=== PATIENT | female | born 1955 | race Caucasian/White ===

== ENCOUNTER 2016-07-13 18:45 | Emergency (ER) | payer MEDICARE, OTHER ==
[2016-07-13 18:57] VITALS: RESP 18
--- NOTE | 2016-07-13 19:02 | ED ---
General Adult HPI - General Chief complaint: Extremity Injury, Upper Stated complaint: shoulder blade injury x 2 weeks Time Seen by Provider: 07/13/16 18:53 Source: patient, RN notes reviewed Mode of arrival: ambulatory Limitations: no limitations - History of Present Illness Initial comments: This is a 60-year-old female who presents with left shoulder pain 2-3 weeks. Patient states she was cleaning her shower and stumbled backwards into her shower hurting her left shoulder. Patient states the pain is over the left scapula. Patient admits that it hurts to take a deep breath. Patient did not hit her head or lose consciousness. Patient denies any neck or back pain. Patient states she was treated for this pain with injections but has never had an x-ray. Patient admits to having a dry cough for 2 weeks. Patient admits to being a smoker. Patient denies any numbness/weakness/tingling or radicular pain. Patient denies any recent fever, chills, shortness breath, chest pain, abdominal pain, nausea/vomiting/diarrhea, back pain, numbness, tingling, hematuria, headache, or visual changes, or any other complaints. - Related Data Home Medications Medication Instructions Recorded Confirmed No Known Home Medications [No 07/13/16 07/13/16 Known Home Medications] Allergies Allergy/AdvReac Type Severity Reaction Status Date / Time acetaminophen Allergy Unknown Verified 07/13/16 19:02 [From Darvocet-N] adhesive tape Allergy Unknown Verified 07/13/16 19:02 propoxyphene Allergy Unknown Verified 07/13/16 19:02 [From Darvocet-N] Review of Systems ROS Statement: Those systems with pertinent positive or pertinent negative responses have been documented in the HPI. ROS Other: All systems not noted in ROS Statement are negative. Past Medical History Additional Past Medical History / Comment(s): hypoglycemia, RSD History of Any Multi-Drug Resistant Organisms: None Reported Past Surgical History: No Surgical Hx Reported Additional Past Surgical History / Comment(s): hysterctomy, Varicose Vein Past Psychological History: No Psychological Hx Reported Smoking Status: Former smoker Past Alcohol Use History: None Reported Past Drug Use History: None Reported General Exam - General Exam Comments Initial Comments: General: The patient is awake and alert, in no distress, and does not appear acutely ill. Neck: There is no cervical midline tenderness. The neck is supple, there is no tenderness or JVD. Cardiovascular: There is a regular rate and rhythm. No murmur, rub or gallop is appreciated. Respiratory: Lungs are clear to auscultation, respirations are non-labored, breath sounds are equal. No wheezes, stridor, rales, or rhonchi. Musculoskeletal: Patient is tender to the left posterior ribs near the thoracic level of the spine. Patient has mild tenderness to the left posterior shoulder and to the anterior aspect of the left shoulder. There is no cervical, thoracic or lumbar midline tenderness. Patient had limited range of motion with flexion of the left upper extremity due to pain in the posterior left shoulder, strength 5/5 and Sensation intact. Radial pulses 2+ bilaterally. Capillary refill is normal at less than 2 seconds. Neurological: A&O x 3. CN II-XII intact, There are no obvious motor or sensory deficits. Coordination appears grossly intact. Speech is normal. Skin: Skin is warm and dry and no rashes or lesions are noted. Psychiatric: Normal mood and affect. Limitations: no limitations Course Vital Signs 07/13/16 18:54 Temperature 97.8 F Pulse Rate 92 Respiratory 18 Rate Blood Pressure 134/64 O2 Sat by Pulse 97 Oximetry Medical Decision Making - Medical Decision Making This is a 60-year-old female who presents with left posterior shoulder pain.. On physical exam Patient is tender to the left posterior ribs near the thoracic level of the spine. Patient has mild tenderness to the left posterior shoulder and to the anterior aspect of the left shoulder. There is no cervical, thoracic or lumbar midline tenderness. Patient had limited range of motion with flexion of the left upper extremity due to pain in the posterior left shoulder, strength 5/5 and Sensation intact. Radial pulses 2+ bilaterally. Capillary refill is normal at less than 2 seconds. Patient is afebrile in the EC today. Patient is in no acute respiratory distress. Lungs are clear to auscultation bilaterally. X-rays of the left ribs, left shoulder and a chest x-ray was done and reviewed showing: Chest x-ray: Bilateral multifocal pulmonary opacities. Would suggest further characterization with CT chest with contrast. X-ray shoulder left: Negative examination. X-ray ribs left: Suspicious pulmonary findings. Reports read by Dr. Brock. At this time basic labs were drawn and reviewed. A CT chest w con was done and reviewed showing: Multifocal pulmonary, skeletal and liver metastatic lesions with hilar and mediastinal adenopathy-suspect left renal cell carcinoma. Report read by Dr. Brock. I discussed the results with patient. I discussed the importance of following up for primary care physician on Saturday for further testing. Patient's questions were all answered and patient was receptive to this plan. I discussed warm heating pads to the left shoulder. Discussed that no fractures were found on imaging. Discussed continuation of patient's normal at home pain medication. Patient's pain is managed with her pain management doctor. I discussed close follow-up with him as well. Discussed return parameters. Patient will be discharged home. I discussed this case with attending physician Dr. Rey who agrees with plan as stated above. - Lab Data Result diagrams: 07/13/16 19:55 07/13/16 19:55 Lab Results 07/13/16 07/13/16 Range/Units 19:55 19:55 WBC 13.5 H (3.8-10.6) k/uL RBC 4.37 (3.80-5.40) m/uL Hgb 12.2 (11.4-16.0) gm/dL Hct 37.6 (34.0-46.0) % MCV 85.9 (80.0-100.0) fL MCH 27.8 (25.0-35.0) pg MCHC 32.4 (31.0-37.0) g/dL RDW 14.4 (11.5-15.5) % Plt Count 671 H (150-450) k/uL Neutrophils % 78 % Lymphocytes % 13 % Monocytes % 6 % Eosinophils % 1 % Basophils % 0 % Neutrophils # 10.5 H (1.3-7.7) k/uL Lymphocytes # 1.7 (1.0-4.8) k/uL Monocytes # 0.8 (0-1.0) k/uL Eosinophils # 0.2 (0-0.7) k/uL Basophils # 0.0 (0-0.2) k/uL Sodium 133 L (137-145) mmol/L Potassium 4.5 (3.5-5.1) mmol/L Chloride 92 L (98-107) mmol/L Carbon Dioxide 32 H (22-30) mmol/L Anion Gap 9 mmol/L BUN 6 L (7-17) mg/dL Creatinine 0.72 (0.52-1.04) mg/dL Est GFR (MDRD) Af Amer >60 (>60 ml/min/1.73 sqM) Est GFR (MDRD) Non-Af >60 (>60 ml/min/1.73 sqM) Glucose 107 H (74-99) mg/dL Calcium 9.0 (8.4-10.2) mg/dL Total Bilirubin 0.6 (0.2-1.3) mg/dL AST 17 (14-36) U/L ALT 29 (9-52) U/L Alkaline Phosphatase 128 H (38-126) U/L Total Protein 6.8 (6.3-8.2) g/dL Albumin 3.6 (3.5-5.0) g/dL Disposition Clinical Impression: Pulmonary nodules/lesions, multiple, Enlarged kidney Disposition: HOME SELF-CARE Condition: Good Instructions: Pulmonary Nodules (ED) Additional Instructions: Please follow-up with your primary care physician on Saturday for further evaluation of the kidney and other results from today's CT scan. It is very important that you follow-up for this. Please use warm heating pads to the left shoulder area and follow up with your pain management doctor as well. Please be sure to drink plenty of fluids to help flush the IV contrast from your system. Please follow-up with family doctor in the next 2 days of symptoms have not improved. Please return to emergency room if the symptoms increase or worsen or for any other concerns. Referrals: Salvador Mckinney MD [Primary Care Provider] - 1-2 days Time of Disposition: 21:47
--- NOTE | 2016-07-13 19:28 | XR ---
EXAMINATION TYPE: XR chest 2V DATE OF EXAM: 07/13/2016 7:17 PM COMPARISON: April 15, 2013 HISTORY: Pain TECHNIQUE: Frontal and lateral views of the chest are obtained. FINDINGS: There are bilateral suspicious pulmonary opacities in the mid and lower lungs which were n ot seen on the prior study. There is no pulmonary edema or evidence of pneumonia. The cardiac silhouette is unremarkable. Mediastinal silhouette is also unremarkable. Pleural spaces a re negative. Bones and soft tissues are negative as seen. IMPRESSION: BILATERAL MULTIFOCAL PULMONARY OPACITIES. WOULD SUGGEST FURTHER CHARACTERIZATION WITH CT CHEST WITH C ONTRAST.
--- NOTE | 2016-07-13 19:30 | XR ---
EXAMINATION TYPE: XR ribs LT DATE OF EXAM: 07/13/2016 7:17 PM COMPARISON: NONE HISTORY: Pain TECHNIQUE: 2 views FINDINGS: No focal skeletal lesions. Multifocal pulmonary opacities noted, as described chest radiogr aphic examination. IMPRESSION: Suspicious pulmonary findings.
--- NOTE | 2016-07-13 19:31 | XR ---
EXAMINATION TYPE: XR shoulder complete LT DATE OF EXAM: 07/13/2016 7:17 PM COMPARISON: NONE HISTORY: Pain, trauma 2 weeks ago TECHNIQUE: 3 views FINDINGS: Bones and joints and soft tissues are unremarkable. IMPRESSION: Negative examination.
[2016-07-13] MEDS ORDERED: RX INFO: IV CONTRAST WAS GIVEN 1 EACH MISC MISCELLANE PRN (19:44)
[2016-07-13 20:16] LABS: Basophils % (A) 0 %; CHCM 33.9; Eosinophils # (A) 0.2 k/uL (0-0.7); Eosinophils % (A) 1 %; HCT 37.6 % (34.0-46.0); HDW 2.41; HGB 12.2 gm/dL (11.4-16.0); Luc # (Auto) 0.13; Luc % (Auto) 1; Lymphocytes # (A) 1.7 k/uL (1.0-4.8); Lymphocytes % (A) 13 %; MCH 27.8 pg (25.0-35.0); MCHC 32.4 g/dL (31.0-37.0); MCV 85.9 fL (80.0-100.0); Mean Platelet Volume 7.1; Monocytes # (A) 0.8 k/uL (0-1.0); Monocytes % (A) 6 %; Neutrophils # (A) 10.5 k/uL (1.3-7.7); Neutrophils % (A) 78 %; RBC 4.37 m/uL (3.80-5.40); RDW 14.4 % (11.5-15.5); WBC 13.5 k/uL (3.8-10.6); WBC (Perox) 13.57
[2016-07-13 20:25] LABS: ALT 29 U/L (9-52); AST 17 U/L (14-36); Alkaline Phosphatase 128 U/L (38-126); Anion Gap 9 mmol/L; Blood Urea Nitrogen 6 mg/dL (7-17); Carbon Dioxide 32 mmol/L (22-30); Chloride 92 mmol/L (98-107); Glucose 107 mg/dL (74-99); Non-African American GFR(MDRD) >60 (>60 ml/min/1.73 sqM); Potassium 4.5 mmol/L (3.5-5.1); Sodium 133 mmol/L (137-145); Total Bilirubin 0.6 mg/dL (0.2-1.3); Total Protein 6.8 g/dL (6.3-8.2)
--- NOTE | 2016-07-13 21:33 | CT ---
EXAMINATION TYPE: CT chest w con DATE OF EXAM: 07/13/2016 8:51 PM COMPARISON: NONE HISTORY: Pain CT DLP: 112 mGycm Automated exposure control for dose reduction was used. CONTRAST: Patient injected with 75 mL of Omnipaque 300. FINDINGS: LUNGS: There are numerous 1 to 2 cm pulmonary lesions consistent with metastatic deposits. MEDIASTINUM: There is prominent subcarinal adenopathy and left hilar adenopathy, with precarinal and right paratracheal adenopathy.. VISUALIZED ABDOMEN: The left kidney is enlarged and appears infiltrated, it does not enhance normall y as does the contralateral right kidney. There is left periaortic adenopathy, the findings are suspi cious for renal cell carcinoma. There is heterogeneity throughout the liver parenchyma which cannot b e further characterized cyst, but the findings are suspicious for secondary neoplasm within the liver . SKELETAL STRUCTURES: The posterior left second rib shows a 2 cm osteolytic lesion consistent with met astatic deposit immediately anterior to the scapula, and this may be responsible for the patient's le ft shoulder region pain. No other definite focal skeletal findings. PERTINENT NEGATIVES: There is no pulmonary edema or evidence of pneumonia. Pericardial and pleural sp aces are negative. There is no pulmonary embolism or other hyperacute thoracic processes. IMPRESSION: MULTIFOCAL PULMONARY, SKELETAL, AND LIVER METASTATIC LESIONS WITH HILAR AND MEDIASTINAL ADENOPATHY - SUSPECT LEFT RENAL CELL CARCINOMA. Results discussed with the ordering physician in order to assure intact communications.
[2016-07-13 21:57] VITALS: BP 136/68; PULSE 82; TEMP 98
== END 2016-07-13 21:45 | disposition home or self-care (01) ==
LOC: EC 18:45
DX: M25.512 Pain in left shoulder (principal); R91.8 Other nonspecific abnormal finding of lung field; C78.7 Secondary malignant neoplasm of liver and intrahepatic bile duct; C79.51 Secondary malignant neoplasm of bone; N28.81 Hypertrophy of kidney; R59.0 Localized enlarged lymph nodes; Z88.6 Allergy status to analgesic agent; Z91.048 Other nonmedicinal substance allergy status; Z87.891 Personal history of nicotine dependence
CPT/HCPCS: 36415; 80053; 85025; 71020; 73030; 71100; 71260; 99284; Q9967

== ENCOUNTER → 2016-07-30 | Outpatient (CLI) | payer MEDICARE, OTHER ==
--- NOTE | 2016-07-30 08:00 | CT ---
EXAMINATION TYPE: CT brain wo/w con DATE OF EXAM: 07/30/2016 7:48 AM COMPARISON: 04/15/2013 HISTORY: History of skin cancer, possible renal mass on prior chest CT Contrast:[id number]/100ml. CT DLP: 2307.5 mGycm Unenhanced followed by contrast enhanced CT of the brain was performed. The ventricles, basal cisterns and sulci overlying the cerebral convexities demonstrate mild enlargem ent. There is no evidence for intracranial hemorrhage or sulcal effacement. There is decreased attenuation about the periventricular white matter and deep white matter of both c erebral hemispheres, compatible with chronic small vessel ischemia. Differential diagnosis does inclu de demyelination. No mass effects are seen.No midline shift. Following the administration of contrast no enhancing lesion or pathologic enhancement is identified. Osseous calvarium is intact. If symptoms persist consider MRI. IMPRESSION: 1. Age related atrophic and chronic small vessel ischemic change without acute intracranial process s een at this time. No enhancing lesion identified.
--- NOTE | 2016-07-30 08:21 | CT ---
EXAMINATION TYPE: CT abdomen pelvis w con DATE OF EXAM: 07/30/2016 7:48 AM COMPARISON: CT chest dated to [address] abdomen pelvis of 11/13/2009 HISTORY: History of skin cancer, possible renal mass on prior chest CT CT DLP: 369.2 mGycm CONTRAST: CT scan of the abdomen and pelvis is performed with Oral Contrast and with IV Contrast, patient injec twila with 100 mL of Omnipaque 300. FINDINGS: LUNG BASES-: Multiple pulmonary nodules have been described on recent CT of the chest. LIVER/GB: No calcified gallstones. 3.5 x 3.1 cm hypoechoic mass within the left hepatic lobe near i ts periphery. Additional smaller lesion left hepatic lobe measures 1.8 x 1.7 cm. Additional vague hyp oattenuating lesion anterior segment right hepatic lobe measuring 2.1 x 2.3 cm. Biliary tree is of no rmal caliber. PANCREAS: No inflammation. No distinct mass. SPLEEN: No splenic enlargement. No lesion seen. ADRENALS: Thickening of the left adrenal gland may reflect metastatic disease. The right adrenal glan d is unremarkable. KIDNEYS/BLADDER: Infiltrating mass upper and mid pole left kidney measuring approximately 7.1 x 5.8 c m compatible with renal cell carcinoma. There is prominence of the left renal vein with the intralumi nal tumor thrombus difficult to exclude. There is mild thickening of the Gerota's fascia. Left perire nal nodularity may reflect adenopathy measuring 2.5 cm and 1.8 cm. Additional cystic changes lower po le left kidney. Right kidney is unremarkable. BOWEL: Normal appendix. Normal bowel caliber. No inflammation. GENITAL ORGANS: No gross abnormality. LYMPH NODES: No additional greater than 1cm abdominal or pelvic lymph nodes are appreciated. AORTA: No significant abnormality. OSSEOUS STRUCTURES: Vague lucency within the left intertrochanteric region. Also vague lucency right iliac wing as well as an area of sclerosis adjacent to the SI joint. OTHER: No significant additional abnormality is seen. IMPRESSION: 1. Findings compatible with infiltrative left renal cell carcinoma. Tumor thrombus within a dilated l eft renal vein is not excluded. Regional adenopathy as discussed as well as metastatic disease to th e lungs, liver and osseous structures. Nodular thickening of the left adrenal gland is suspicious for additional metastatic disease or tumor infiltration.
--- NOTE | 2016-07-30 15:06 | NM ---
EXAMINATION TYPE: NM bone scan whole body DATE OF EXAM: 07/30/2016 2:36 PM COMPARISON: NONE HISTORY: Metastatic renal cell carcinoma. Delayed whole-body scanning was performed following the injection of 27.5 mCi Tc 99m MDP. Images acq uired 5.5 hours post injection. FINDINGS: Findings compatible with metastatic disease include lesions to the left first rib, left second rib, r ight first rib, right third and fourth ribs, right iliac wing adjacent to the right SI joint, right i schium, left intertrochanteric region, right T12 pedicle as well as left T7 pedicle. IMPRESSION: Osseous metastatic lesions as noted above.
== END | disposition home or self-care (01) ==
LOC: RADCTMAIN 07:01
PROVIDERS: ATTEND Internal Medicine Hematology & Oncology
DX: C78.00 Secondary malignant neoplasm of unspecified lung (principal); C78.7 Secondary malignant neoplasm of liver and intrahepatic bile duct; C79.51 Secondary malignant neoplasm of bone; D41.10 Neoplasm of uncertain behavior of unspecified renal pelvis; I67.82 Cerebral ischemia; G31.1 Senile degeneration of brain, not elsewhere classified
CPT/HCPCS: 70470; 74177; 78306; A9503; Q9967

== ENCOUNTER 2016-08-14 10:15 | Inpatient (IN) | payer MEDICARE, OTHER ==
[2016-08-14] MEDS ORDERED: RX INFO: IV CONTRAST WAS GIVEN 1 EACH MISC MISCELLANE PRN (10:27)
[2016-08-14] MEDS ORDERED: ACETAMINOPHEN TAB 500 MG TAB PO STA (10:28)
--- NOTE | 2016-08-14 10:31 | ED ---
General Adult HPI - General Chief complaint: Fever Stated complaint: Fever Time Seen by Provider: 08/14/16 10:18 Source: patient, RN notes reviewed Mode of arrival: ambulatory Limitations: no limitations - History of Present Illness Initial comments: Patient is a pleasant 60-year-old female presenting to the emergency department complaining of cough. Patient states cough started yesterday. Patient did feel a little bit short of breath earlier today however that improved with a cough drop. Patient does admit to having bilateral lower leg discomfort. Patient was being seen for rib biopsy today and noticed to have fever and hypoxia. Patient was advised to come to the emergency department. Patient also admits to having some leg swelling. Case was discussed with Dr. Castro prior to patient arrival. He recommends lab work and CT of the chest. Patient does have a history of renal cancer with metastasis to liver and lung and bone. Patient is not currently on chemotherapy. - Related Data Home Medications Medication Instructions Recorded Confirmed Albuterol Sulfate [Proair Hfa] 1 - 2 puff INHALATION RT-Q6H PRN 08/10/16 Estradiol [Estrace] 1 mg PO DAILY 08/10/16 08/14/16 Gabapentin [Neurontin] 600 mg PO TID 08/10/16 08/14/16 Levothyroxine Sodium [Synthroid] 50 mcg PO DAILY 08/10/16 08/14/16 Methadone [Dolophine] 10 mg PO Q12HR 08/10/16 08/14/16 Mirtazapine [Remeron] 15 mg PO HS 08/10/16 08/14/16 Morphine Sulfate ER [Ms Contin 60 mg PO Q12HR 08/10/16 08/14/16 60Mg] Zolpidem [Ambien] 5 mg PO HS 08/10/16 08/14/16 Allergies Allergy/AdvReac Type Severity Reaction Status Date / Time adhesive tape Allergy Unknown Verified 08/14/16 10:53 propoxyphene Allergy Unknown Verified 08/14/16 10:53 [From Angelica] Review of Systems ROS Statement: Those systems with pertinent positive or pertinent negative responses have been documented in the HPI. ROS Other: All systems not noted in ROS Statement are negative. Constitutional: Reports: fever Eyes: Denies: eye pain ENT: Denies: ear pain, throat pain Respiratory: Reports: cough, dyspnea Cardiovascular: Denies: chest pain Endocrine: Denies: fatigue Gastrointestinal: Denies: abdominal pain Genitourinary: Denies: dysuria Musculoskeletal: Denies: back pain Skin: Denies: rash Neurological: Denies: weakness Past Medical History Past Medical History: Cancer, Thyroid Disorder Additional Past Medical History / Comment(s): hypoglycemia, RSD, cancer - kidneys w/ mets to lungs & liver. History of Any Multi-Drug Resistant Organisms: None Reported Past Surgical History: Hysterectomy Additional Past Surgical History / Comment(s): hysterctomy, Varicose Vein Past Psychological History: Anxiety Smoking Status: Former smoker Past Alcohol Use History: None Reported Past Drug Use History: None Reported - Past Family History Mother Family Medical History: Cancer Additional Family Medical History / Comment(s): lung Father Family Medical History: Cancer Additional Family Medical History / Comment(s): mesothelioma General Exam Limitations: no limitations General appearance: alert, in no apparent distress Head exam: Present: atraumatic Eye exam: Present: normal appearance, PERRL ENT exam: Present: normal oropharynx Neck exam: Present: normal inspection Respiratory exam: Present: rales (Bilateral bases) Cardiovascular Exam: Present: regular rate, normal rhythm GI/Abdominal exam: Present: soft. Absent: distended, tenderness Extremities exam: Present: normal inspection, calf tenderness. Absent: pedal edema Neurological exam: Present: alert Psychiatric exam: Present: normal affect, normal mood Skin exam: Absent: rash Course Vital Signs 08/14/16 08/14/16 08/14/16 10:19 11:44 13:14 Temperature 101.2 F H 98.2 F 97.1 F L Pulse Rate 97 86 73 Respiratory 14 14 18 Rate Blood Pressure 113/58 110/58 98/53 O2 Sat by Pulse 98 94 L 95 Oximetry - Reevaluation(s) Reevaluation #1: 08/14/16 10:28 Patient denies Tylenol ALLERGY 08/14/16 14:59 Case was again discussed with Dr. Castro. He feels fever could likely be from the tumor. He does recommend medical admission for further evaluation of troponin. He is agreeable to Levaquin for a questionable urinary tract infection. Case was also discussed with Dr. Martin, who will admit for Dr. gauthier. EKG Findings - EKG Comments: EKG Findings:: Normal sinus rhythm and 95. Normal intervals. Normal axis. Normal QRS. Normal ST-T. Medical Decision Making - Lab Data Result diagrams: 08/14/16 10:37 08/14/16 10:37 Lab Results 08/14/16 08/14/16 08/14/16 Range/Units 10:37 10:37 10:37 WBC 17.7 H (3.8-10.6) k/uL RBC 3.51 L (3.80-5.40) m/uL Hgb 9.9 L D (11.4-16.0) gm/dL Hct 29.3 L (34.0-46.0) % MCV 83.4 (80.0-100.0) fL MCH 28.1 (25.0-35.0) pg MCHC 33.7 (31.0-37.0) g/dL RDW 15.0 (11.5-15.5) % Plt Count 708 H (150-450) k/uL Neutrophils % 90 % Lymphocytes % 4 % Monocytes % 4 % Eosinophils % 0 % Basophils % 1 % Neutrophils # 16.0 H (1.3-7.7) k/uL Lymphocytes # 0.7 L (1.0-4.8) k/uL Monocytes # 0.7 (0-1.0) k/uL Eosinophils # 0.0 (0-0.7) k/uL Basophils # 0.1 (0-0.2) k/uL PT (9.0-12.0) sec INR (<1.1) APTT (22.0-30.0) sec Sodium 129 L (137-145) mmol/L Potassium 4.1 (3.5-5.1) mmol/L Chloride 91 L (98-107) mmol/L Carbon Dioxide 28 (22-30) mmol/L Anion Gap 10 mmol/L BUN 8 (7-17) mg/dL Creatinine 0.70 (0.52-1.04) mg/dL Est GFR (MDRD) Af Amer >60 (>60 ml/min/1.73 sqM) Est GFR (MDRD) Non-Af >60 (>60 ml/min/1.73 sqM) Glucose 106 H (74-99) mg/dL Plasma Lactic Acid Andre (0.7-2.0) mmol/L Calcium 8.4 (8.4-10.2) mg/dL Total Bilirubin 0.6 (0.2-1.3) mg/dL AST 23 (14-36) U/L ALT 24 (9-52) U/L Alkaline Phosphatase 163 H (38-126) U/L Total Creatine Kinase 114 (30-135) U/L CK-MB (CK-2) 2.3 (0.0-2.4) ng/mL CK-MB (CK-2) Rel Index 2.0 Troponin I 0.131 H* (0.000-0.034) ng/mL NT-Pro-B Natriuret Pep pg/mL Total Protein 5.7 L (6.3-8.2) g/dL Albumin 2.8 L (3.5-5.0) g/dL Cortisol 25 ug/dL Urine Color Urine Appearance (Clear) Urine pH (5.0-8.0) Ur Specific [place] (1.001-1.035) Urine Protein (Negative) Urine Glucose (UA) (Negative) Urine Ketones (Negative) Urine Blood (Negative) Urine Nitrate (Negative) Urine Bilirubin (Negative) Urine Urobilinogen (<2.0) mg/dL Ur Leukocyte Esterase (Negative) Urine RBC (0-5) /hpf Urine WBC (0-5) /hpf Ur Squamous Epith Cells (0-4) /hpf Influenza Type A RNA (Not Detectd) Influenza Type B (PCR) (Not Detectd) 08/14/16 08/14/16 08/14/16 Range/Units 10:37 10:37 10:37 WBC (3.8-10.6) k/uL RBC (3.80-5.40) m/uL Hgb (11.4-16.0) gm/dL Hct (34.0-46.0) % MCV (80.0-100.0) fL MCH (25.0-35.0) pg MCHC (31.0-37.0) g/dL RDW (11.5-15.5) % Plt Count (150-450) k/uL Neutrophils % % Lymphocytes % % Monocytes % % Eosinophils % % Basophils % % Neutrophils # (1.3-7.7) k/uL Lymphocytes # (1.0-4.8) k/uL Monocytes # (0-1.0) k/uL Eosinophils # (0-0.7) k/uL Basophils # (0-0.2) k/uL PT 12.5 H (9.0-12.0) sec INR 1.3 (<1.1) APTT 30.5 H (22.0-30.0) sec Sodium (137-145) mmol/L Potassium (3.5-5.1) mmol/L Chloride (98-107) mmol/L Carbon Dioxide (22-30) mmol/L Anion Gap mmol/L BUN (7-17) mg/dL Creatinine (0.52-1.04) mg/dL Est GFR (MDRD) Af Amer (>60 ml/min/1.73 sqM) Est GFR (MDRD) Non-Af (>60 ml/min/1.73 sqM) Glucose (74-99) mg/dL Plasma Lactic Acid Andre 0.9 (0.7-2.0) mmol/L Calcium (8.4-10.2) mg/dL Total Bilirubin (0.2-1.3) mg/dL AST (14-36) U/L ALT (9-52) U/L Alkaline Phosphatase (38-126) U/L Total Creatine Kinase (30-135) U/L CK-MB (CK-2) (0.0-2.4) ng/mL CK-MB (CK-2) Rel Index Troponin I (0.000-0.034) ng/mL NT-Pro-B Natriuret Pep pg/mL Total Protein (6.3-8.2) g/dL Albumin (3.5-5.0) g/dL Cortisol ug/dL Urine Color Urine Appearance (Clear) Urine pH (5.0-8.0) Ur Specific [place] (1.001-1.035) Urine Protein (Negative) Urine Glucose (UA) (Negative) Urine Ketones (Negative) Urine Blood (Negative) Urine Nitrate (Negative) Urine Bilirubin (Negative) Urine Urobilinogen (<2.0) mg/dL Ur Leukocyte Esterase (Negative) Urine RBC (0-5) /hpf Urine WBC (0-5) /hpf Ur Squamous Epith Cells (0-4) /hpf Influenza Type A RNA Not Detected (Not Detectd) Influenza Type B (PCR) Not Detected (Not Detectd) 08/14/16 08/14/16 Range/Units 10:37 14:00 WBC (3.8-10.6) k/uL RBC (3.80-5.40) m/uL Hgb (11.4-16.0) gm/dL Hct (34.0-46.0) % MCV (80.0-100.0) fL MCH (25.0-35.0) pg MCHC (31.0-37.0) g/dL RDW (11.5-15.5) % Plt Count (150-450) k/uL Neutrophils % % Lymphocytes % % Monocytes % % Eosinophils % % Basophils % % Neutrophils # (1.3-7.7) k/uL Lymphocytes # (1.0-4.8) k/uL Monocytes # (0-1.0) k/uL Eosinophils # (0-0.7) k/uL Basophils # (0-0.2) k/uL PT (9.0-12.0) sec INR (<1.1) APTT (22.0-30.0) sec Sodium (137-145) mmol/L Potassium (3.5-5.1) mmol/L Chloride (98-107) mmol/L Carbon Dioxide (22-30) mmol/L Anion Gap mmol/L BUN (7-17) mg/dL Creatinine (0.52-1.04) mg/dL Est GFR (MDRD) Af Amer (>60 ml/min/1.73 sqM) Est GFR (MDRD) Non-Af (>60 ml/min/1.73 sqM) Glucose (74-99) mg/dL Plasma Lactic Acid Andre (0.7-2.0) mmol/L Calcium (8.4-10.2) mg/dL Total Bilirubin (0.2-1.3) mg/dL AST (14-36) U/L ALT (9-52) U/L Alkaline Phosphatase (38-126) U/L Total Creatine Kinase (30-135) U/L CK-MB (CK-2) (0.0-2.4) ng/mL CK-MB (CK-2) Rel Index Troponin I (0.000-0.034) ng/mL NT-Pro-B Natriuret Pep 848 pg/mL Total Protein (6.3-8.2) g/dL Albumin (3.5-5.0) g/dL Cortisol ug/dL Urine Color Light Yellow Urine Appearance Clear (Clear) Urine pH 6.0 (5.0-8.0) Ur Specific [place] 1.008 (1.001-1.035) Urine Protein Negative (Negative) Urine Glucose (UA) Negative (Negative) Urine Ketones Negative (Negative) Urine Blood Small H (Negative) Urine Nitrate Negative (Negative) Urine Bilirubin Negative (Negative) Urine Urobilinogen <2.0 (<2.0) mg/dL Ur Leukocyte Esterase Small H (Negative) Urine RBC 5 (0-5) /hpf Urine WBC 11 H (0-5) /hpf Ur Squamous Epith Cells <1 (0-4) /hpf Influenza Type A RNA (Not Detectd) Influenza Type B (PCR) (Not Detectd) - Radiology Data Radiology results: report reviewed (Bilateral lower extremity ultrasound negative for DVT. Computed tomography scan of the chest shows no pulmonary embolism. Extensive small nodules, compatible with metastasis.) Disposition Clinical Impression: Fever, Elevated troponin Disposition: ADMITTED IP TO THIS HOSP
[2016-08-14 11:09] LABS: INR 1.3 (<1.1); Partial Thromboplastin Time 30.5 sec (22.0-30.0); Prothrombin Time 12.5 sec (9.0-12.0)
[2016-08-14 11:12] LABS: Basophils # (A) 0.1 k/uL (0-0.2); Basophils % (A) 1 %; CHCM 33.7; Eosinophils % (A) 0 %; HCT 29.3 % (34.0-46.0); Luc # (Auto) 0.17; Luc % (Auto) 1; Lymphocytes # (A) 0.7 k/uL (1.0-4.8); Lymphocytes % (A) 4 %; MCH 28.1 pg (25.0-35.0); MCHC 33.7 g/dL (31.0-37.0); MCV 83.4 fL (80.0-100.0); Mean Platelet Volume 7.3; Monocytes # (A) 0.7 k/uL (0-1.0); Monocytes % (A) 4 %; Neutrophils % (A) 90 %; RBC 3.51 m/uL (3.80-5.40); WBC 17.7 k/uL (3.8-10.6); WBC (Perox) 16.54
[2016-08-14 11:21] LABS: ALT 24 U/L (9-52); AST 23 U/L (14-36); Alkaline Phosphatase 163 U/L (38-126); Anion Gap 10 mmol/L; Blood Urea Nitrogen 8 mg/dL (7-17); Calcium 8.4 mg/dL (8.4-10.2); Carbon Dioxide 28 mmol/L (22-30); Chloride 91 mmol/L (98-107); Glucose 106 mg/dL (74-99); Non-African American GFR(MDRD) >60 (>60 ml/min/1.73 sqM); Potassium 4.1 mmol/L (3.5-5.1); Sodium 129 mmol/L (137-145); Total Bilirubin 0.6 mg/dL (0.2-1.3); Total Protein 5.7 g/dL (6.3-8.2)
[2016-08-14 11:23] LABS: HGB 9.9 gm/dL (11.4-16.0)
[2016-08-14 11:45] LABS: Creatine Kinase MB 2.3 ng/mL (0.0-2.4)
--- NOTE | 2016-08-14 11:46 | US ---
EXAMINATION TYPE: US venous doppler duplex LE BI DATE OF EXAM: 08/14/2016 11:26 AM COMPARISON: NONE CLINICAL HISTORY: Pain. Bilateral leg pain/ pt has renal CA with mets to lung and liver SIDE PERFORMED: Bilateral VESSELS IMAGED: External Iliac Vein (EIV) Common Femoral Vein Deep Femoral Vein Greater Saphenous Vein * Femoral Vein Popliteal Vein Small Saphenous Vein * Proximal Calf Veins (* superficial vessels) TECHNOLOGIST IMPRESSION: wnl Right Leg: No evidence of DVT/ Rt groin veins appear small in [place] when compared to left and righ t deep femoral vein shows reversal flow Left Leg: Negative for DVT IMPRESSION: 1. No deep venous thrombosis bilateral lower extremities. 2. Note is made of reversal of flow within the deep right femoral vein. Collateral flow may be presen t due to un-imaged stenosis.
[2016-08-14 12:01] LABS: Troponin I 0.131 ng/mL (0.000-0.034)
--- NOTE | 2016-08-14 12:06 | CT ---
CT CHEST FOR PULMONARY EMBOLISM. EXAMINATION TYPE: CT angio chest DATE OF EXAM: 08/14/2016 11:24 AM INDICATION: PE CT DLP: 107.90 mGycm, Automated exposure control for dose reduction was used. CONTRAST: Patient injected with 100 ml mL of Omnipaque 350. COMPARISON: 07/13/2016 TECHNIQUE: CT of the chest is performed on a spiral scan at 2 mm thick sections. Study is performed with intravenous contrast timed for evaluation for pulmonary embolism. This will limit additional po rtions of the evaluation. 3-D MIP images reconstructed by the technologist are reviewed on the compu ter in the coronal and sagittal planes. FINDINGS: No persistent filling defects are evident to suggest an acute pulmonary embolism. There appears to be a 2.2 cm subcarinal soft tissue density. This could be a large lymph node. Enlarg ed pretracheal lymphadenopathy is present measuring 1.1 cm. Some smaller shotty lymphadenopathy and r ight hilar adenopathy is present. The ascending aorta diameter at the level of the main pulmonary ar patrice is 2.9 cm. The main pulmonary artery diameter at the bifurcation is 2.3 cm. There is a 0.6 cm nodule in the posterior lateral left apex. There is an adjacent 0.3 cm nodule. Seri es 5 image 24. 0.3 cm nodules in the posterior right apex. Couple of peripheral punctate nodules are present. 0.5 cm nodules in the posterior lateral right lung apex. A 0.4 cm nodules in the posterior l eft lung apex.. Series 5 image 27. There is a 0.5 similar nodule anterior lateral right lung. Series 5 image 33. 0.9 x 1.4 cm nodules in the periphery of the posterior lateral left upper lung field. Ser ies 5 image 38. 0.4 cm nodules in the periphery of the right upper lung field. Series 5 image 41. 0.4 cm spiculated nodules in the periphery of the right lung. Series 5 image 43. 0.4 cm nodules in the r ight middle lobe the periphery. At same level of 0.4 cm nodules in the anterior right midlung and adj acent to the major fissure measuring 0.5 cm. Series 5 image 54. There is a right middle lobe lung mas s measuring 1.4 x 0.5 cm area at same level a posterior lung nodule measuring 0.8 cm is present. Seri es 5 image 58. Couple small nodules measuring 0.3 cm is in the posterior left lung. Series 5 image 59 . There is a small left pleural effusion. Some thickening along the right major fissure is present me asuring 0.6 and 0.5 cm best visualized series 5 image 67. Small nodules adjacent measuring 0.4 cm. 0. 5 cm nodules in the left infrahilar region. Series 5 image 70. There is a 0.5 cm nodule within the green perior segment right lower lobe. Series 5 image 72. 0.5 cm nodules in the major fissure on the right. There is a a few larger nodules at the right lateral lung and lung base series 5 image 78 measuring 1.1 cm and measuring 1.1 x 1.9 cm. Left lung base nodules are present measuring 2.0 x 1.0 cm and 1.0 x 1.5 cm. Series 5 image 80. Additional 0.6, 0.9, 1.0 cm nodules are in the peripheral right lower lo be. Series 5 image 87. Additional smaller nodules are along the medial periphery and within the right middle lobe periphery at this level. There is a left lung base nodule measuring 1.8 x 1.4 cm. Periph eral 2.2 x 1.1 cm medial left lung base nodules present. There is a 1.4 cm nodule in the posterior ri ght lung base. Series 5 image 94 Irregular nodule measuring 1.5 x 1.3 cm is within the major fissure. Series 5 image 97. Lingular mass measuring 2.3 x 1.7 cm cyst within the anterior medial cardiophreni c angle. Series 5 image 101 0.5 cm nodules within the right middle lobe at this level. 1.0 cm nodules in the periphery of the right lower lobe series 5 image 104 0.6 similar nodule with adjacent smaller nodules in the dependent right lung base. A lingular spiculated month nodule measures 0.5 cm. Series 5 image 106. 0.7 cm nodules in the periphery of the right lower lobe. A 1.3 x 1.1 cm nodules in the periphery of the lingula. Series 5 image 114. A 1.0 x 2.3 cm mass in the periphery of the right lower lobe. Multiple additional 0.9 cm nodules in the bilateral lung bases dependent portions. Limited CT section through the upper abdomen are unremarkable. IMPRESSIONS: 1. No acute pulmonary embolism. 2. Extensive small nodules present bilaterally throughout the lung moe compatible with metastasis.
[2016-08-14] MEDS ORDERED: SODIUM CHLORIDE 0.9% 1,000 ML IV STA (13:05)
[2016-08-14 14:14] LABS: Appearance,Urine Clear (Clear); Bilirubin,Urine Negative (Negative); Glucose,Urine (UA) Negative (Negative); Ketones,Urine Negative (Negative); Leukocyte Esterase,Urine Small (Negative); Nitrite,Urine Negative (Negative); Particle Count 3014; Protein,Urine Negative (Negative); RBC,Urine 5 /hpf (0-5); Specific Gravity,Urine 1.008 (1.001-1.035); Squamous Epithelial Cell,Urine <1 /hpf (0-4); UA Billing (MACRO vs. MICRO) MICRO; Urobilinogen,Urine <2.0 mg/dL (<2.0); WBC,Urine 11 /hpf (0-5)
[2016-08-14] MEDS ORDERED: NITROGLYCERIN SL TABS 0.4 MG TAB SUBLINGUAL PRN (15:03)
[2016-08-14] MEDS ORDERED: ASPIRIN 81 MG CHEW PO STA (15:03)
[2016-08-14] MEDS ORDERED: LEVOFLOXACIN 750MG-D5W PMX 750 MG in DEXTROSE/WATER 1 150ML.BAG IVPB STA (15:06)
[2016-08-14] MEDS: SODIUM CHLORIDE 0.9% 1,000 ML IV SCH (15:34)
[2016-08-14] MEDS ORDERED: MORPHINE SULFATE 4 MG/ML SYRINGE IVP STA (15:44)
[2016-08-14] MEDS ORDERED: ALBUTEROL NEBULIZED 2.5 MG/3 ML INHALATION PRN (17:12)
[2016-08-14 19:48] LABS: Creatine Kinase MB 2.9 ng/mL (0.0-2.4); Troponin I 0.07 ng/mL (0.000-0.034)
[2016-08-14] MEDS: METHADONE 10 MG TAB PO SCH (21:02)
[2016-08-14] MEDS: GABAPENTIN 300 MG CAP PO SCH (21:04)
[2016-08-14] MEDS: MORPHINE SULFATE ER 60 MG TABLET PO SCH (21:04)
[2016-08-14] MEDS: MIRTAZAPINE 15 MG TAB PO SCH (21:05)
--- NOTE | 2016-08-14 21:36 | HP ---
DATE OF ADMISSION: 08/14/2016 Patient is a 60-year-old female who came to Emergency Room Department after she was sent here from radiology department. Patient came in for ( ) biopsy. Patient has metastatic disease for cancer. The patient had a fever of 101 at the time of biopsy and the patient was sent to the ER secondary to that. The patient denied any nausea, vomiting. Patient has dry cough. The patient denies denied any dysuria. Chest x-ray and CT did not show a pneumonic process. Patient denied any pleuritic pain and patient has been constant use ( ) because of her cancer and patient is supposed to receive chemotherapy. No source of infection was identified. The patient has ( ). ROS: All other systems were reviewed and were negative. Home medications include: 1. Albuterol. 2. ( ). 3. Gabapentin. 4. Levothyroxine. 5. Methadone. 6. Mirtazapine. 7. Morphine. 8. Ambien. ALLERGIES: Allergic to ADHESIVE TAPE AND ( ). PAST MEDICAL HISTORY: Significant for hypothyroidism, neuropathy, ( ), hysterectomy, varicose veins in the past. SOCIAL HISTORY: Former smoker. Denied any drug abuse or any alcohol abuse. FAMILY HISTORY: Significant for lung cancer in mother and father had mesothelioma. PHYSICAL EXAMINATION: VITAL SIGNS: Temperature 97.1, 24 hour T-max 101.2, pulse 73, respiratory rate 18, blood pressure is 98/63, saturating at 95% on room air. GENERAL: Very thin built female, cachectic. Patient does have bilaterally ankle edema secondary to malnutrition. HEENT: Pupils are round and equally reacting to light. EOMI. No scleral icterus. No conjunctival pallor. Normocephalic, atraumatic. No pharyngeal erythema. No thyromegaly. CARDIOVASCULAR: S1 and S2 present. No murmurs, rubs, or gallops. PULMONARY: Chest is clear to auscultation, no wheezing or crackles. ABDOMEN: Soft, nontender, nondistended, normoactive bowel sounds. No palpable organomegaly. MUSCULOSKELETAL: No joint swelling or deformity. EXTREMITIES: No cyanosis, clubbing, or pedal edema. NEUROLOGICAL: Gross neurological examination did not reveal any focal deficits. SKIN: No rashes. Patient is not neutropenic. The patient does have WBC count 70,000 and sodium of 129. BUN and creatinine essentially within normal limits and platelet count of 708,000, hemoglobin of 9.9. Chest x-ray, UA essentially within normal limits. No significant abnormality. ASSESSMENT AND PLAN: 1. Etiology of sepsis is unknown. Etiology of her fever and leukocytosis is unknown. Patient has systemic inflammatory response syndrome, most probably related to the cancer anyways. The patient influenza test is negative. Patient denied any flu-like symptoms. Patient only ( ) right arm. Chest x-ray and CT not consistent with pneumonia or atypical pneumonia. We will continue with Levothyroxine until ( ) source if infection, mostly related to cancer itself. Infectious disease will be consulted. 2. ( ) cachexia, mild to moderate protein calorie malnutrition, Ensure Plus and regular diet. 3. Hypothyroidism. Continue with levothyroxine. 4. Renal cell carcinoma for which patient will undergo chemotherapy as schedule, and Dr. Castro was consulted. 5. Hyponatremia, hypovolemic hyponatremia, the patient will be started on IV normal saline at 125 mL per hour. 6. Leukocytosis as part of systemic inflammatory response syndrome may be related cancer itself, the patient will be continued on empiric antibiotics as mentioned above. MTDD
[2016-08-14] MEDS: ZOLPIDEM 5 MG TAB PO SCH (23:19)
[2016-08-14] MEDS: DIAZEPAM 5 MG TAB PO PRN (23:19)
[2016-08-14 23:20] LABS: Troponin I 0.044 ng/mL (0.000-0.034)
[2016-08-14 23:21] LABS: Creatine Kinase MB 3.6 ng/mL (0.0-2.4)
[2016-08-15] MEDS: SODIUM CHLORIDE 0.9% 1,000 ML IV SCH ×4 (05:39→20:59)
[2016-08-15] MEDS: LEVOTHYROXINE 50 MCG TAB PO SCH (06:21)
[2016-08-15 06:26] LABS: Basophils # (A) 0.1 k/uL (0-0.2); Basophils % (A) 0 %; CH 27.2; CHCM 31.7; Eosinophils # (A) 0.1 k/uL (0-0.7); Eosinophils % (A) 1 %; HCT 32.6 % (34.0-46.0); HDW 2.65; Hypochromasia Slight; Luc # (Auto) 0.14; Luc % (Auto) 1; Lymphocytes # (A) 0.7 k/uL (1.0-4.8); Lymphocytes % (A) 6 %; MCH 26.4 pg (25.0-35.0); MCHC 30.7 g/dL (31.0-37.0); MCV 86.1 fL (80.0-100.0); Mean Platelet Volume 6.4; Monocytes # (A) 0.5 k/uL (0-1.0); Monocytes % (A) 4 %; Neutrophils # (A) 10.8 k/uL (1.3-7.7); Neutrophils % (A) 88 %; RBC 3.78 m/uL (3.80-5.40); RDW 14.8 % (11.5-15.5); WBC 12.3 k/uL (3.8-10.6); WBC (Perox) 13.15
[2016-08-15 06:39] LABS: ALT 18 U/L (9-52); AST 24 U/L (14-36); Alkaline Phosphatase 167 U/L (38-126); Anion Gap 10 mmol/L; Blood Urea Nitrogen 11 mg/dL (7-17); Calcium 8.4 mg/dL (8.4-10.2); Carbon Dioxide 29 mmol/L (22-30); Chloride 96 mmol/L (98-107); Cholesterol 128 mg/dL (<200); Glucose 82 mg/dL (74-99); HDL Cholesterol 26 mg/dL (40-60); Non-African American GFR(MDRD) >60 (>60 ml/min/1.73 sqM); Potassium 4.3 mmol/L (3.5-5.1); Sodium 135 mmol/L (137-145); Total Bilirubin 0.4 mg/dL (0.2-1.3); Total Protein 5.7 g/dL (6.3-8.2); Triglycerides 162 mg/dL (<150)
[2016-08-15] MEDS: METHADONE 10 MG TAB PO SCH ×2 (09:18→20:56)
[2016-08-15] MEDS: MORPHINE SULFATE ER 60 MG TABLET PO SCH ×2 (09:19→20:58)
[2016-08-15] MEDS: GABAPENTIN 300 MG CAP PO SCH ×3 (09:20→20:56)
[2016-08-15] MEDS: ASPIRIN 325 MG TAB PO SCH (09:21)
--- NOTE | 2016-08-15 09:22 | P.CONS ---
History of Present Illness - Reason for Consult Consult date: 08/15/16 Leukocytosis, fever - History of Present Illness This is a 60-year-old female with a past medical history of reflex sympathetic dystrophy, hypothyroidism, basal cell skin cancer, urinary incontinence. Patient was recently diagnosed with renal cell cancer with metastatic disease to the lungs and liver. She was scheduled yesterday for rib biopsy but apparently she was unable to be flat for the procedure and had shortness of breath and found to have a fever. She was sent to the [facility] emergency center for further evaluation. Patient has also had some lower extremity edema. She underwent ultrasound of bilateral lower extremities which was negative for DVT. CTA of the chest showed no pulmonary embolism. Extensive small nodules bilaterally throughout compatible with metastatic disease. Temperature was 101.2 with leukocytosis of 17.7, hemoglobin 10. Sodium was also 129 with repeat of 135. Influenza testing was negative for A and B. urinalysis was clear, blood small, leukoesterase small. Patient denies any dysuria. Urine culture is in progress and blood culture is status received. Patient was started on Levaquin and admitted to the selective care unit due to elevated troponins which were 0.131, 0.070 and 0.044. Patient is followed by Dr. Castro and also cardiology. Echocardiogram has been done and report is pending. Patient denies having any chest pain or shortness of breath she does complain that her feet have been swollen lately. She denies any nausea. She states she has had loose stools but not watery for couple of days. She states she is eating and drinking without difficulty with no change in her appetite but she has had weight loss of 22 pounds since middle of April. Review of Systems All systems: negative Constitutional: Reports weight loss, Denies anorexia, Denies chills, Denies fever, Denies poor appetite Eyes: denies blurred vision, denies pain Ears, nose, mouth and throat: Denies dental pain, Denies headache, Denies mouth pain, Denies sore throat Cardiovascular: Reports leg edema, Denies chest pain, Denies lightheadedness, Denies shortness of breath, Denies syncope Respiratory: Denies cough Gastrointestinal: Denies abdominal pain, Denies diarrhea, Denies nausea, Denies vomiting Genitourinary: Reports urge incontinence, Denies dysuria, Denies hematuria Musculoskeletal: Denies myalgias Integumentary: Denies pruritus, Denies rash Neurological: Denies numbness, Denies weakness Psychiatric: Denies anxiety, Denies depression Endocrine: Denies fatigue, Denies weight change Past Medical History Past Medical History: Cancer, Thyroid Disorder Additional Past Medical History / Comment(s): hypoglycemia, reflex sympathetic dystrophy, renal cancer with metastases to the lungs, liver and ribs, basal cell skin cancer, stress incontinence, lost approx 30# since 2015 History of Any Multi-Drug Resistant Organisms: None Reported Past Surgical History: Appendectomy, Hysterectomy, Tonsillectomy Additional Past Surgical History / Comment(s): hysterectomy, Varicose Vein, colonoscopy at age 56 which was normal per patient Past Anesthesia/Blood Transfusion Reactions: No Reported Reaction Past Psychological History: Anxiety Additional Psychological History / Comment(s): [facility], has 3 steps she goes up. has meals on wheels, no other outside services at this time. has medical alert. She lives alone. There are no pets in the home. No recent travel. 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 Smoking Status: Former smoker Past Alcohol Use History: None Reported Additional Past Alcohol Use History / Comment(s): started smoking at age 26(1981 ) and quit may 2016, smoked half a pack per day Past Drug Use History: None Reported - Past Family History Mother Family Medical History: Cancer Additional Family Medical History / Comment(s): lung Father Family Medical History: Cancer Additional Family Medical History / Comment(s): mesothelioma Medications and Allergies Home Medications Medication Instructions Recorded Confirmed Type Albuterol Sulfate [Proair Hfa] 1 - 2 puff INHALATION RT-Q6H PRN 08/10/16 History Estradiol [Estrace] 1 mg PO DAILY 08/10/16 08/14/16 History Gabapentin [Neurontin] 600 mg PO TID 08/10/16 08/14/16 History Levothyroxine Sodium [Synthroid] 50 mcg PO DAILY 08/10/16 08/14/16 History Methadone [Dolophine] 10 mg PO Q12HR 08/10/16 08/14/16 History Mirtazapine [Remeron] 15 mg PO HS 08/10/16 08/14/16 History Morphine Sulfate ER [Ms Contin 60 mg PO Q12HR 08/10/16 08/14/16 History 60Mg] Zolpidem [Ambien] 5 mg PO HS 08/10/16 08/14/16 History Diazepam [Diazepam] 5 mg PO TID PRN 08/14/16 08/14/16 History Allergies Allergy/AdvReac Type Severity Reaction Status Date / Time adhesive tape Allergy Unknown Verified 08/14/16 10:53 propoxyphene Allergy Unknown Verified 08/14/16 10:53 [From [facility]] Physical Exam Vitals: Vital Signs Temp Pulse Pulse Resp BP BP Pulse Ox 08/15/16 08:00 16 08/15/16 04:00 99.4 F 98 16 126/77 89 L 08/15/16 00:00 97.2 F L 83 16 116/58 97 08/14/16 20:00 96.6 F L 78 16 105/70 97 08/14/16 16:22 98.6 F 77 20 91/55 97 08/14/16 16:20 20 08/14/16 15:51 97.4 F L 80 16 104/64 98 Intake and Output 08/14/16 08/15/16 08/15/16 22:59 06:59 14:59 Intake Total 120 1200 180 Balance 120 1200 180 Intake: IV 1200 Sodium Chloride 0.9% 1, 1200 000 ml @ 100 mls/hr IV . Q10H [facility] Rx#:[id number] Oral 120 180 Other: Voiding Method Toilet # Voids 1 Weight 45.5 kg Gen: This is a 60-year-old cachectic appearing female. She is sitting up in bed and appears to be in no acute distress. Tarry distress noted. HEENT: Head is atraumatic, normocephalic. Pupils equal, round. Sclerae is anicteric. Conjunctiva pink. Mucous membranes of the mouth are moist. Dentures in place. No thrush noted. NECK: Supple. No JVD. No lymphadenopathy. No thyromegaly. LUNGS: Few scattered rhonchi with end expiratory wheeze. Good air exchange. No intercostal retractions. HEART: Regular rate and rhythm. No murmur. ABDOMEN: Soft. Bowel sounds are present. No masses. No tenderness. No suprapubic tenderness. EXTREMITIES: +1 bilateral pedal edema. No calf tenderness. Dorsalis pedis weak bilaterally. NEUROLOGICAL: Patient is awake, alert and oriented x3. Cranial nerves 2 through 12 are grossly intact. Results Results: Laboratory Results WBC 12.3 k/uL (3.8-10.6) H 08/15/16 06:00 RBC 3.78 m/uL (3.80-5.40) L 08/15/16 06:00 Hgb 10.0 gm/dL (11.4-16.0) L 08/15/16 06:00 Hct 32.6 % (34.0-46.0) L 08/15/16 06:00 MCV 86.1 fL (80.0-100.0) 08/15/16 06:00 MCH 26.4 pg (25.0-35.0) 08/15/16 06:00 MCHC 30.7 g/dL (31.0-37.0) L 08/15/16 06:00 RDW 14.8 % (11.5-15.5) 08/15/16 06:00 Plt Count 784 k/uL (150-450) H 08/15/16 06:00 Neutrophils % 88 % 08/15/16 06:00 Lymphocytes % 6 % 08/15/16 06:00 Monocytes % 4 % 08/15/16 06:00 Eosinophils % 1 % 08/15/16 06:00 Basophils % 0 % 08/15/16 06:00 Neutrophils # 10.8 k/uL (1.3-7.7) H 08/15/16 06:00 Lymphocytes # 0.7 k/uL (1.0-4.8) L 08/15/16 06:00 Monocytes # 0.5 k/uL (0-1.0) 08/15/16 06:00 Eosinophils # 0.1 k/uL (0-0.7) 08/15/16 06:00 Basophils # 0.1 k/uL (0-0.2) 08/15/16 06:00 Hypochromasia Slight 08/15/16 06:00 PT 12.5 sec (9.0-12.0) H 08/14/16 10:37 INR 1.3 (<1.1) 08/14/16 10:37 APTT 30.5 sec (22.0-30.0) H 08/14/16 10:37 Sodium 135 mmol/L (137-145) L 08/15/16 06:00 Potassium 4.3 mmol/L (3.5-5.1) 08/15/16 06:00 Chloride 96 mmol/L (98-107) L 08/15/16 06:00 Carbon Dioxide 29 mmol/L (22-30) 08/15/16 06:00 Anion Gap 10 mmol/L 08/15/16 06:00 BUN 11 mg/dL (7-17) 08/15/16 06:00 Creatinine 0.70 mg/dL (0.52-1.04) 08/15/16 06:00 Est GFR (MDRD) Af Amer >60 (>60 ml/min/1.73 sqM) 08/15/16 06:00 Est GFR (MDRD) Non-Af >60 (>60 ml/min/1.73 sqM) 08/15/16 06:00 Glucose 82 mg/dL (74-99) 08/15/16 06:00 Plasma Lactic Acid Andre 0.9 mmol/L (0.7-2.0) 08/14/16 10:37 Calcium 8.4 mg/dL (8.4-10.2) 08/15/16 06:00 Total Bilirubin 0.4 mg/dL (0.2-1.3) 08/15/16 06:00 AST 24 U/L (14-36) 08/15/16 06:00 ALT 18 U/L (9-52) 08/15/16 06:00 Alkaline Phosphatase 167 U/L (38-126) H 08/15/16 06:00 Total Creatine Kinase 113 U/L (30-135) 08/14/16 22:26 CK-MB (CK-2) 3.6 ng/mL (0.0-2.4) H* 08/14/16 22:26 CK-MB (CK-2) Rel Index 3.2 08/14/16 22:26 Troponin I 0.044 ng/mL (0.000-0.034) H* 08/14/16 22:26 NT-Pro-B Natriuret Pep 848 pg/mL 08/14/16 10:37 Total Protein 5.7 g/dL (6.3-8.2) L 08/15/16 06:00 Albumin 2.7 g/dL (3.5-5.0) L 08/15/16 06:00 Triglycerides 162 mg/dL (<150) H 08/15/16 06:00 Cholesterol 128 mg/dL (<200) 08/15/16 06:00 LDL Cholesterol, Calc 70 mg/dL (0-99) 08/15/16 06:00 HDL Cholesterol 26 mg/dL (40-60) L 08/15/16 06:00 Cortisol 25 ug/dL 08/14/16 10:37 Urine Color Light Yellow 08/14/16 14:00 Urine Appearance Clear (Clear) 08/14/16 14:00 Urine pH 6.0 (5.0-8.0) 08/14/16 14:00 Ur Specific [place] 1.008 (1.001-1.035) 08/14/16 14:00 Urine Protein Negative (Negative) 08/14/16 14:00 Urine Glucose (UA) Negative (Negative) 08/14/16 14:00 Urine Ketones Negative (Negative) 08/14/16 14:00 Urine Blood Small (Negative) H 08/14/16 14:00 Urine Nitrate Negative (Negative) 08/14/16 14:00 Urine Bilirubin Negative (Negative) 08/14/16 14:00 Urine Urobilinogen <2.0 mg/dL (<2.0) 08/14/16 14:00 Ur Leukocyte Esterase Small (Negative) H 08/14/16 14:00 Urine RBC 5 /hpf (0-5) 08/14/16 14:00 Urine WBC 11 /hpf (0-5) H 08/14/16 14:00 Ur Squamous Epith Cells <1 /hpf (0-4) 08/14/16 14:00 Influenza Type A RNA Not Detected (Not Detectd) 08/14/16 10:37 Influenza Type B (PCR) Not Detected (Not Detectd) 08/14/16 10:37 CBC & Chem 7: 08/15/16 06:00 08/15/16 06:00 Labs: Abnormal Lab Results - Last 24 Hours (Table) 08/14/16 08/14/16 08/15/16 Range/Units 18:14 22:26 06:00 WBC (3.8-10.6) k/uL RBC (3.80-5.40) m/uL Hgb (11.4-16.0) gm/dL Hct (34.0-46.0) % MCHC (31.0-37.0) g/dL Plt Count (150-450) k/uL Neutrophils # (1.3-7.7) k/uL Lymphocytes # (1.0-4.8) k/uL Sodium 135 L (137-145) mmol/L Chloride 96 L (98-107) mmol/L Alkaline Phosphatase 167 H (38-126) U/L CK-MB (CK-2) 2.9 H* 3.6 H* (0.0-2.4) ng/mL Troponin I 0.070 H* 0.044 H* (0.000-0.034) ng/mL Total Protein 5.7 L (6.3-8.2) g/dL Albumin 2.7 L (3.5-5.0) g/dL Triglycerides 162 H (<150) mg/dL HDL Cholesterol 26 L (40-60) mg/dL 08/15/16 Range/Units 06:00 WBC 12.3 H (3.8-10.6) k/uL RBC 3.78 L (3.80-5.40) m/uL Hgb 10.0 L (11.4-16.0) gm/dL Hct 32.6 L (34.0-46.0) % MCHC 30.7 L (31.0-37.0) g/dL Plt Count 784 H (150-450) k/uL Neutrophils # 10.8 H (1.3-7.7) k/uL Lymphocytes # 0.7 L (1.0-4.8) k/uL Sodium (137-145) mmol/L Chloride (98-107) mmol/L Alkaline Phosphatase (38-126) U/L CK-MB (CK-2) (0.0-2.4) ng/mL Troponin I (0.000-0.034) ng/mL Total Protein (6.3-8.2) g/dL Albumin (3.5-5.0) g/dL Triglycerides (<150) mg/dL HDL Cholesterol (40-60) mg/dL Assessment and Plan Plan: This is a 60-year-old female who presented to the hospital with signs of SIRS with fever and leukocytosis area patient was recently diagnosed with renal cancer with metastatic disease to the lung liver and ribs. No source of infection is noted. She has followed by Dr. Castro with concern that fever is due to tumor. Cardiology is on consult for elevated troponins and echocardiogram has been obtained. Patient is currently on Levaquin which will be discontinued. Tylenol added for fever. Urine culture and blood culture are in progress. Further recommendations as patient progresses. The above dictated assessment and findings were discussed with Dr. Zamudio. The impression and plan of care have been directed as dictated. Cindy Cool nurse practitioner acting as scribe for Dr. Zamudio. Time with Patient: Greater than 30
[2016-08-15] MEDS: DIAZEPAM 5 MG TAB PO PRN ×2 (09:24→18:25)
--- NOTE | 2016-08-15 09:56 | ECHOF ---
Referral Reason:Elevated troponin MEASUREMENTS -------- HEIGHT: 157.5 cm WEIGHT: 45.4 kg BP: 126/77 RVIDd: 2.9 cm (< 3.3) IVSd: 1.0 cm (0.6 - 1.1) LVIDd: 2.5 cm (3.9 - 5.3) LVPWd: 0.8 cm (0.6 - 1.1) IVSs: 1.3 cm LVIDs: 1.8 cm LVPWs: 1.3 cm LA Diam: 2.6 cm (2.7 - 3.8) LAESV Index (A-L): 20.96 ml/m Ao Diam: 2.4 cm (2.0 - 3.7) AV Cusp: 1.8 cm (1.5 - 2.6) LA Diam: 1.5 cm (2.7 - 3.8) MV EXCURSION: 14.056 mm (> 18.000) MV EF SLOPE: 56 mm/s (70 - 150) EPSS: 0.6 cm MV E Cr: 0.93 m/s MV DecT: 117 ms MV A Cr: 1.09 m/s MV E/A Ratio: 0.86 FINDINGS -------- Sinus rhythm. This was a technically good study. Left ventricular wall thickness is normal. Overall left ventricular systolic function is normal with, an EF between 55 - 60 %. The right ventricle is normal in size. Normal LA size by volume 22+/-6 ml/m2. The right atrium is normal in size. Aortic valve is trileaflet and is mildly thickened. The mitral valve leaflets are mildly thickened. Mild mitral annular calcification present. Mild mitral regurgitation is present. Trace tricuspid regurgitation present. Pulmonic valve appears structurally normal. The aortic root size is normal. The inferior vena cava is mildly dilated. There is no pericardial effusion. CONCLUSIONS -------- 1. Sinus rhythm. 2. Mild mitral annular calcification present. 3. Mild mitral regurgitation is present. 4. Trace tricuspid regurgitation present. 5. Pulmonic valve appears structurally normal. 6. The aortic root size is normal. 7. The inferior vena cava is mildly dilated. 8. There is no pericardial effusion. 9. This was a technically good study. 10. Left ventricular wall thickness is normal. 11. Overall left ventricular systolic function is normal with, an EF between 55 - 60 %. 12. The right ventricle is normal in size. 13. Normal LA size by volume 22+/-6 ml/m2. 14. The right atrium is normal in size. 15. Aortic valve is trileaflet and is mildly thickened. 16. The mitral valve leaflets are mildly thickened. PERITONEAL DIALYSIS REGISTERED NURSE: Devorah Roque RDCS
[2016-08-15] MEDS: ACETAMINOPHEN TAB 325 MG TAB PO PRN (10:29)
[2016-08-15 11:05] VITALS: BMI 18.1
[2016-08-15] MEDS ORDERED: LEVOFLOXACIN 750MG-D5W PMX 750 MG in DEXTROSE/WATER 1 150ML.BAG IVPB SCH (16:00)
--- NOTE | 2016-08-15 17:05 | PN ---
Patient was admitted for fever. Leukocytosis ( ) response syndrome without any signs or symptoms of infection. Patient still has a low-grade fever today morning. Patient is clinically doing well without any signs or symptoms of infection anywhere. Fever and leukocytosis are probably related to cancer itself and Infectious Disease evaluated the patient. REVIEW OF SYSTEMS: CARDIOVASCULAR: No chest pain, no orthopnea, no PND, no palpitations. PULMONARY: Denied any shortness of breath. No cough or hemoptysis. GASTROINTESTINAL: No diarrhea, nausea or vomiting. No abdominal pain. Normoactive bowel sounds. NEUROLOGIC: No headaches, no weakness, no numbness. Medications were reviewed. PHYSICAL EXAMINATION: Temperature 100.2, pulse of 101, respiratory rate 18, blood pressure is 134/78, saturating at 94% in room air. GENERAL: The patient is alert and oriented x3, not in any acute distress. Well developed, well nourished. HEENT: Pupils are round and equally reacting to light. EOMI. No scleral icterus. No conjunctival pallor. Normocephalic, atraumatic. No pharyngeal erythema. No thyromegaly. CARDIOVASCULAR: S1 and S2 present. No murmurs, rubs, or gallops. PULMONARY: Chest is clear to auscultation, no wheezing or crackles. ABDOMEN: Soft, nontender, nondistended, normoactive bowel sounds. No palpable organomegaly. MUSCULOSKELETAL: No joint swelling or deformity. EXTREMITIES: No cyanosis, clubbing, or pedal edema. NEUROLOGICAL: Gross neurological examination did not reveal any focal deficits. SKIN: No rashes. LABORATORY DATA: CBC and CMP are abnormal for elevated WBC count of 12,300 which is an improvement since yesterday. Troponin is elevated to 0.12 and Cardiology is following the patient. Echocardiogram did not show wall motion abnormalities. ASSESSMENT AND PLAN: 1. Systemic inflammatory response syndrome secondary to cancer itself without any signs or symptoms of infection. Patient is on empiric antibiotic of levofloxacin. Infectious Disease evaluated the patient as well. 2. ( ). 3. 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 4. Hypothyroidism. 5. Renal cell carcinoma for which patient will schedule to get chemotherapy as an outpatient. 6. Hypovolemic hypernatremia improved with IV fluids. 7. Elevated troponin with normal echocardiogram. Cardiology evaluated the patient. No further intervention. Elevated troponin is secondary to probably systemic inflammatory response again.
[2016-08-15] MEDS: MIRTAZAPINE 15 MG TAB PO SCH (20:56)
[2016-08-15] MEDS: ZOLPIDEM 5 MG TAB PO SCH (20:58)
--- NOTE | 2016-08-15 21:23 | P.CON ---
Consult Note - . Consult date: 08/15/16 Assessment/Plan:: This is a 60-year-old female with a past medical history of reflex sympathetic dystrophy, hypothyroidism, basal cell skin cancer, urinary incontinence. Patient was recently diagnosed with renal cell cancer with metastatic disease to the lungs and liver. She was scheduled yesterday for rib biopsy but apparently she was unable to be flat for the procedure and had shortness of breath and found to have a fever. She was sent to the [facility] emergency center for further evaluation. Patient has also had some lower extremity edema. She underwent ultrasound of bilateral lower extremities which was negative for DVT. CTA of the chest showed no pulmonary embolism. Extensive small nodules bilaterally throughout compatible with metastatic disease. Temperature was 101.2 with leukocytosis of 17.7, hemoglobin 10. Sodium was also 129 with repeat of 135. Influenza testing was negative for A and B. urinalysis was clear, blood small, leukoesterase small. Patient denies any dysuria. Urine culture is in progress and blood culture is status received. Patient was started on Levaquin and admitted to the selective care unit due to elevated troponins which were 0.131, 0.070 and 0.044. Patient is followed by Dr. Castro and also cardiology. Echocardiogram has been done and report is pending. Patient denies having any chest pain or shortness of breath she does complain that her feet have been swollen lately. She denies any nausea. She states she has had loose stools but not watery for couple of days. She states she is eating and drinking without difficulty with no change in her appetite but she has had weight loss of 22 pounds since middle april. Please see the consult note is dictated by nurse practitioner Cindy Lincolnkavita. Patient this point in time relates that she's feeling better. For to possibly going home soon. Her fever has resolved. When she did have a fever she did not feel chills or rigors. Somewhat unaware that she actually had a fever. Looks forward to having her referred biopsy so further plans can be made regarding her metastatic renal cell cancer. Urine cultures negative. Blood cultures negative. The extensive small nodules in both lung moe are noted on the computed tomography scan but no evidence of any pneumonic infiltration. The patient does not appear to have evidence of active infection at this point in time. Prescription fever related to her underlying malignancy for which renal cell carcinoma is quite common in causing tumor related fevers. Proceed to her work up as quickly as possible. She is an excellent candidate for palliative care. I agree with evaluation, assessment and plan as dictated by nurse practitioner Mrs. Cindy Cool.
[2016-08-16] MEDS: LEVOTHYROXINE 50 MCG TAB PO SCH (06:19)
[2016-08-16 07:25] LABS: CH 27.4; CHCM 31.6; HCT 34.8 % (34.0-46.0); HDW 2.67; HGB 10.7 gm/dL (11.4-16.0); Hypochromasia Slight; MCH 26.7 pg (25.0-35.0); MCHC 30.7 g/dL (31.0-37.0); MCV 87.1 fL (80.0-100.0); Mean Platelet Volume 6.3; RDW 15.1 % (11.5-15.5); WBC 18.2 k/uL (3.8-10.6)
[2016-08-16 07:44] LABS: Anion Gap 10 mmol/L; Blood Urea Nitrogen 10 mg/dL (7-17); Calcium 8.7 mg/dL (8.4-10.2); Carbon Dioxide 28 mmol/L (22-30); Chloride 96 mmol/L (98-107); Glucose 146 mg/dL (74-99); Non-African American GFR(MDRD) >60 (>60 ml/min/1.73 sqM); Potassium 4.7 mmol/L (3.5-5.1); Sodium 134 mmol/L (137-145)
[2016-08-16] MEDS: ACETAMINOPHEN TAB 325 MG TAB PO PRN (07:55)
[2016-08-16] MEDS: DIAZEPAM 5 MG TAB PO PRN ×2 (07:55→15:45)
[2016-08-16] MEDS: METHADONE 10 MG TAB PO SCH ×2 (07:55→19:59)
[2016-08-16] MEDS: GABAPENTIN 300 MG CAP PO SCH ×3 (07:56→21:38)
[2016-08-16] MEDS: MORPHINE SULFATE ER 60 MG TABLET PO SCH ×2 (07:56→19:59)
[2016-08-16] MEDS: ASPIRIN 325 MG TAB PO SCH (07:57)
[2016-08-16] MEDS: SODIUM CHLORIDE 0.9% 1,000 ML IV SCH (08:31)
--- NOTE | 2016-08-16 11:09 | P.CRDCN ---
History of Present Illness Consult date: 08/16/16 Consult reason: non-Q-wave LA History of present illness: 60-year-old lady with metastatic cancer is admitted to hospital with fever. Cardiology has been consulted because of elevated troponin. Her troponins are mildly elevated. EKG does not reveal ischemic changes. An echocardiogram shows normal left ventricular size wall motion systolic function the troponin elevation is of no real significance at this time. She does not require any further cardiac workup. Review of Systems Constitutional: Denies chills. Has fever fever. Eyes: Denies blurred vision. Denies pain. Ears, nose, mouth and throat: Denies headache. Denies sore throat. Cardiovascular: Denies chest pain. Denies shortness of breath. Respiratory: Denies cough. Gastrointestinal: Denies abdominal pain. Denies diarrhea. Denies nausea. Denies vomiting. Musculoskeletal: Denies myalgias. Muscular skeletal pain Integumentary: Denies pruritus. Denies rash. Neurological: Denies numbness. Denies weakness. Psychiatric: Denies anxiety. Denies depression. Endocrine: Denies fatigue. Denies weight change. Genitourinary: Denies burning, hematuria, frequency of urination. Hematological: No anemia or excess bleeding. Past Medical History Past Medical History: Cancer, Thyroid Disorder Additional Past Medical History / Comment(s): hypoglycemia, reflex sympathetic dystrophy, renal cancer with metastases to the lungs, liver and ribs, basal cell skin cancer, stress incontinence, lost approx 30# since 2015 History of Any Multi-Drug Resistant Organisms: None Reported Past Surgical History: Appendectomy, Hysterectomy, Tonsillectomy Additional Past Surgical History / Comment(s): hysterectomy, Varicose Vein, colonoscopy at age 56 which was normal per patient Past Anesthesia/Blood Transfusion Reactions: No Reported Reaction Past Psychological History: Anxiety Additional Psychological History / Comment(s): pt lives at [facility], has 3 steps she goes up. has meals on wheels, no other outside services at this time. has medical alert. She lives alone. There are no pets in the home. No recent travel. 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 Smoking Status: Former smoker Past Alcohol Use History: None Reported Additional Past Alcohol Use History / Comment(s): started smoking at age 26(1981 ) and quit may 2016, smoked half a pack per day Past Drug Use History: None Reported - Past Family History Mother Family Medical History: Cancer Additional Family Medical History / Comment(s): lung Father Family Medical History: Cancer Additional Family Medical History / Comment(s): mesothelioma Medications and Allergies Home Medications Medication Instructions Recorded Confirmed Type Albuterol Sulfate [Proair Hfa] 1 - 2 puff INHALATION RT-Q6H PRN 08/10/16 History Estradiol [Estrace] 1 mg PO DAILY 08/10/16 08/14/16 History Gabapentin [Neurontin] 600 mg PO TID 08/10/16 08/14/16 History Levothyroxine Sodium [Synthroid] 50 mcg PO DAILY 08/10/16 08/14/16 History Methadone [Dolophine] 10 mg PO Q12HR 08/10/16 08/14/16 History Mirtazapine [Remeron] 15 mg PO HS 08/10/16 08/14/16 History Morphine Sulfate ER [Ms Contin 60 mg PO Q12HR 08/10/16 08/14/16 History 60Mg] Zolpidem [Ambien] 5 mg PO HS 08/10/16 08/14/16 History Diazepam [Diazepam] 5 mg PO TID PRN 08/14/16 08/14/16 History Allergies Allergy/AdvReac Type Severity Reaction Status Date / Time adhesive tape Allergy Unknown Verified 08/14/16 10:53 propoxyphene Allergy Unknown Verified 08/14/16 10:53 [From [facility]] Physical Exam Vitals: Vital Signs Temp Pulse Resp BP Pulse Ox 08/16/16 09:30 98.1 F 08/16/16 08:00 116 H 08/16/16 07:00 101.1 F H 116 H 18 163/79 93 L 08/15/16 23:00 98.2 F 83 16 117/57 97 08/15/16 15:00 97.5 F L 80 18 108/56 92 L Intake and Output 08/15/16 08/16/16 08/16/16 22:59 06:59 14:59 Intake Total 120 Balance 120 Intake: Oral 120 Other: Voiding Method Toilet Toilet # Voids 1 1 General: The patient is awake and alert, in no distress, and does not appear acutely ill. Skin: Skin is warm and dry and no rashes or lesions are noted. Eye: Pupils are equal, round and reactive to light, extra-ocular movements are intact; there is normal conjunctiva bilaterally. Ears, nose, mouth and throat: There are moist mucous membranes and no oral lesions. Neck: The neck is supple, there is no tenderness or JVD. Cardiovascular: There is a regular rate and rhythm. No murmur, rub or gallop is appreciated. Respiratory: Lungs are clear to auscultation, respirations are non-labored, breath sounds are equal. Gastrointestinal: Soft, non-distended, non-tender abdomen without masses or organomegaly noted. There is no rebound or guarding present. Bowel sounds are unremarkable. Back: There is no tenderness to palpation in the midline. There is no obvious deformity. Musculoskeletal: Normal ROM, no tenderness, There is no pedal edema. There is no calf tenderness or swelling. Extremities: Mild bilateral edema Vascular: Femoral pulse is normal. Posterior tibial pulses are normal .Dorsalis pedis is palpable. Neurological: CN II-XII intact. There are no obvious motor or sensory deficits. Speech is normal. Psychiatric: Cooperative, appropriate mood & affect, normal judgment. Results 08/16/16 06:52 08/16/16 06:52 CBC 08/16/16 Range/Units 06:52 WBC 18.2 H (3.8-10.6) k/uL RBC 4.00 (3.80-5.40) m/uL Hgb 10.7 L (11.4-16.0) gm/dL Hct 34.8 (34.0-46.0) % Plt Count 857 H* (150-450) k/uL Comprehensive Metabolic Panel 08/16/16 Range/Units 06:52 Sodium 134 L (137-145) mmol/L Potassium 4.7 (3.5-5.1) mmol/L Chloride 96 L (98-107) mmol/L Carbon Dioxide 28 (22-30) mmol/L BUN 10 (7-17) mg/dL Creatinine 0.67 (0.52-1.04) mg/dL Glucose 146 H (74-99) mg/dL Calcium 8.7 (8.4-10.2) mg/dL Current Medications Generic Name Dose Route Start Last Admin Trade Name Freq PRN Reason Stop Dose Admin Acetaminophen 650 mg 08/15/16 09:37 08/16/16 07:55 Tylenol Tab PO 650 mg Q4HR PRN Administration Fever and/ or Pain Albuterol Sulfate 2.5 mg 08/14/16 17:12 Ventolin Nebulized INHALATION RT-Q6H PRN Shortness Of Breath Aspirin 325 mg 08/15/16 09:00 08/16/16 07:57 Aspirin PO 325 mg DAILY RUDY Administration Diazepam 5 mg 08/14/16 22:24 08/16/16 07:55 Valium PO 5 mg TID PRN Administration Anxiety Gabapentin 600 mg 08/14/16 22:00 08/16/16 07:56 Neurontin PO 600 mg TID RUDY Administration Sodium Chloride 1,000 mls @ 100 mls/hr 08/14/16 15:15 08/16/16 08:31 Saline 0.9% IV Not Given .Q10H RUDY Levothyroxine Sodium 50 mcg 08/15/16 06:30 08/16/16 06:19 Synthroid PO 50 mcg 0630 RUYD Administration Methadone HCl 10 mg 08/14/16 21:00 08/16/16 07:55 Dolophine PO 10 mg Q12HR RUDY Administration Mirtazapine 15 mg 08/14/16 21:00 08/15/16 20:56 Remeron PO 15 mg HS RUDY Administration Morphine Sulfate 60 mg 08/14/16 21:00 08/16/16 07:56 Ms Contin PO 60 mg Q12HR RUDY Administration Nitroglycerin 0.4 mg 08/14/16 15:03 Nitrostat SUBLINGUAL Q5M PRN Chest Pain Zolpidem Tartrate 5 mg 08/14/16 22:30 08/15/16 20:58 Ambien PO 5 mg HS RUDY Administration Intake and Output 08/15/16 08/16/16 08/16/16 22:59 06:59 14:59 Intake Total 120 Balance 120 Intake: Oral 120 Other: Voiding Method Toilet Toilet # Voids 1 1 08/16/16 06:52 08/16/16 06:52 EKG Interpretations (text) Normal sinus rhythm without acute ST-T wave changes Assessment and Plan Plan: Mild troponin elevation Metastatic cancer I reviewed echo findings reviewed troponins I do not believe patient is having acute myocardial ischemic event her prognosis guarded and does not require cardiac workup we will see the patient on an as-needed basis thank you
[2016-08-16 11:18] LABS: INR 1.3 (<1.1)
--- NOTE | 2016-08-16 12:43 | PN ---
Patient is admitted with fever, leukocytosis although no source of infection is identified and her fever and leukocytosis and systemic inflammatory response syndrome is considered secondary to renal cell cancer itself and patient is undergoing biopsy today. Patient is feeling quite tired and sick today with increasing leukocytosis, although we cannot find any source of infection although all the workup is negative. Because of her lethargy today, I still have bit of concerns because of which I will hold discharge today, monitor her tonight and patient probably can be discharged if she feels a little better in spite of fever and leukocytosis. Leukocytosis is bit worse today. In the meantime, we will let Dr. Zamudio do further evaluation as well. REVIEW OF SYSTEMS: GENERAL: Patient is feeling tired, lethargic today; more so than yesterday. CARDIOVASCULAR: No chest pain, no orthopnea, no PND, no palpitations. PULMONARY: Denied any shortness of breath. No cough or hemoptysis. GASTROINTESTINAL: No diarrhea, nausea or vomiting. No abdominal pain. Normoactive bowel sounds. NEUROLOGIC: No headaches, no weakness, no numbness. Medications were reviewed. PHYSICAL EXAMINATION: VITAL SIGNS: Temperature 98.1, pulse of 116, respiratory rate of 18, blood pressure is 163/79, saturating at 93% on room air. GENERAL: The patient is thin built, alert and oriented x3, a bit tired and lethargic. HEENT: Pupils are round and equally reacting to light. EOMI. No scleral icterus. No conjunctival pallor. Normocephalic, atraumatic. No pharyngeal erythema. No thyromegaly. CARDIOVASCULAR: S1 and S2 present. No murmurs, rubs, or gallops. PULMONARY: Chest is clear to auscultation, no wheezing or crackles. ABDOMEN: Soft, nontender, nondistended, normoactive bowel sounds. No palpable organomegaly. MUSCULOSKELETAL: No joint swelling or deformity. EXTREMITIES: No cyanosis, clubbing, or pedal edema. NEUROLOGICAL: Gross neurological examination did not reveal any focal deficits. SKIN: No rashes. LABORATORY DATA: CBC, CMP are abnormal for elevated WBC count of 18,000. Patient has reactive thrombocytosis with 857 platelet count. Sodium of 134. ASSESSMENT AND PLAN: 1. Systemic inflammatory response syndrome without any signs or symptoms of infection. Patient is off antibiotics. Patient is a bit lethargic today, can be related to her renal cell cancer itself. 2. Renal cell cancer. The patient is undergoing biopsy today. Possibility of discharge tomorrow. 3. Cancer cachexia and protein calorie malnutrition secondary to that. 4. Hypothyroidism. 5. Renal cell carcinoma for which patient is scheduled for chemotherapy as an outpatient. The patient did not start her on chemotherapy. 6. Hypovolemia hyponatremia, improved with IV fluids then sodium started getting worse again. 7. Mildly elevated troponin secondary to systemic inflammatory response. Cardiology evaluated the patient. No further intervention. Does not appear to be acute myocardial infarction. 8. Tachycardia again related to systemic inflammatory response. Will closely monitor in spite of everything being negative for one more night because of her increased lethargy. All of these can be related to cancer itself.
--- NOTE | 2016-08-16 12:58 | CT ---
EXAMINATION TYPE: CT biopsy bone superficial FNA and core biopsy DATE OF EXAM: 08/16/2016 11:49 AM COMPARISON: NONE HISTORY: Left rib mass The procedure is discussed with the patient, the risks, complications, benefits and alternatives, wer e discussed and any questions were answered. Informed consent was obtained. The patient is placed p luigi on the CT table, prepped and draped in the usual sterile fashion. Utilizing a 22-gauge Chiba needle access into the left rib mass mass was achieved with 2 passes perfo rmed. Subsequent 2 18-gauge core samples were obtained. Pathology confirmed adequate sample. All elements of maximal barrier and sterile technique were uti lized. The patient remained stable throughout the procedure with no immediate postprocedural complic ation. IMPRESSION: 1. Successful CT guided fine needle aspiration and core biopsy of a destructive left second rib mas s
[2016-08-16] MEDS: MIRTAZAPINE 15 MG TAB PO SCH (19:59)
--- NOTE | 2016-08-16 21:00 | P.PN ---
Subjective Principal diagnosis: Leukocytosis and fever This is a 60-year-old female with a past medical history of reflex sympathetic dystrophy, hypothyroidism, basal cell skin cancer, urinary incontinence. Patient was recently diagnosed with renal cell cancer with metastatic disease to the lungs and liver. She was scheduled yesterday for rib biopsy but apparently she was unable to be flat for the procedure and had shortness of breath and found to have a fever. She was sent to the [facility] emergency center for further evaluation. Patient has also had some lower extremity edema. She underwent ultrasound of bilateral lower extremities which was negative for DVT. CTA of the chest showed no pulmonary embolism. Extensive small nodules bilaterally throughout compatible with metastatic disease. Temperature was 101.2 with leukocytosis of 17.7, hemoglobin 10. Sodium was also 129 with repeat of 135. Influenza testing was negative for A and B. urinalysis was clear, blood small, leukoesterase small. Patient denies any dysuria. Urine culture is in progress and blood culture is status received. Patient was started on Levaquin and admitted to the selective care unit due to elevated troponins which were 0.131, 0.070 and 0.044. Patient is followed by Dr. Castro and also cardiology. Echocardiogram has been done and report is pending. Patient denies having any chest pain or shortness of breath she does complain that her feet have been swollen lately. She denies any nausea. She states she has had loose stools but not watery for couple of days. She states she is eating and drinking without difficulty with no change in her appetite but she has had weight loss of 22 pounds since middle of April. Objective - Vital Signs Vital signs: Vital Signs Temp 97.4 F L 08/16/16 14:03 Pulse 82 08/16/16 15:03 Resp 16 08/16/16 15:03 BP 122/75 08/16/16 15:03 Pulse Ox 98 08/16/16 15:03 Intake & Output 08/16/16 08/16/16 08/17/16 06:59 18:59 06:59 Intake Total 120 590 Balance 120 590 Weight 45.5 kg Intake: Oral 120 590 Other: Voiding Method Toilet Toilet # Voids 1 2 - Exam Gen: This is a 60-year-old cachectic appearing female. She is sitting up in bed and appears to be in no acute distress. Tarry distress noted. HEENT: Head is atraumatic, normocephalic. Pupils equal, round. Sclerae is anicteric. Conjunctiva pink. Mucous membranes of the mouth are moist. Dentures in place. No thrush noted. NECK: Supple. No JVD. No lymphadenopathy. No thyromegaly. LUNGS: Few scattered rhonchi with end expiratory wheeze. Good air exchange. No intercostal retractions. HEART: Regular rate and rhythm. No murmur. ABDOMEN: Soft. Bowel sounds are present. No masses. No tenderness. No suprapubic tenderness. EXTREMITIES: +1 bilateral pedal edema. No calf tenderness. Dorsalis pedis weak bilaterally. NEUROLOGICAL: Patient is awake, alert and oriented x3 - Labs CBC & Chem 7: 08/16/16 06:52 08/16/16 06:52 Labs: Abnormal Lab Results - Last 24 Hours (Table) 08/16/16 08/16/16 08/16/16 Range/Units 06:52 06:52 10:06 WBC 18.2 H (3.8-10.6) k/uL Hgb 10.7 L (11.4-16.0) gm/dL MCHC 30.7 L (31.0-37.0) g/dL Plt Count 857 H* (150-450) k/uL PT 13.0 H (9.0-12.0) sec Sodium 134 L (137-145) mmol/L Chloride 96 L (98-107) mmol/L Glucose 146 H (74-99) mg/dL Laboratory Results WBC 18.2 k/uL (3.8-10.6) H 08/16/16 06:52 RBC 4.00 m/uL (3.80-5.40) 08/16/16 06:52 Hgb 10.7 gm/dL (11.4-16.0) L 08/16/16 06:52 Hct 34.8 % (34.0-46.0) 08/16/16 06:52 MCV 87.1 fL (80.0-100.0) 08/16/16 06:52 MCH 26.7 pg (25.0-35.0) 08/16/16 06:52 MCHC 30.7 g/dL (31.0-37.0) L 08/16/16 06:52 RDW 15.1 % (11.5-15.5) 08/16/16 06:52 Plt Count 857 k/uL (150-450) H* 08/16/16 06:52 Neutrophils % 88 % 08/15/16 06:00 Lymphocytes % 6 % 08/15/16 06:00 Monocytes % 4 % 08/15/16 06:00 Eosinophils % 1 % 08/15/16 06:00 Basophils % 0 % 08/15/16 06:00 Neutrophils # 10.8 k/uL (1.3-7.7) H 08/15/16 06:00 Lymphocytes # 0.7 k/uL (1.0-4.8) L 08/15/16 06:00 Monocytes # 0.5 k/uL (0-1.0) 08/15/16 06:00 Eosinophils # 0.1 k/uL (0-0.7) 08/15/16 06:00 Basophils # 0.1 k/uL (0-0.2) 08/15/16 06:00 Hypochromasia Slight 08/16/16 06:52 PT 13.0 sec (9.0-12.0) H 08/16/16 10:06 INR 1.3 (<1.1) 08/16/16 10:06 APTT 30.5 sec (22.0-30.0) H 08/14/16 10:37 Sodium 134 mmol/L (137-145) L 08/16/16 06:52 Potassium 4.7 mmol/L (3.5-5.1) 08/16/16 06:52 Chloride 96 mmol/L (98-107) L 08/16/16 06:52 Carbon Dioxide 28 mmol/L (22-30) 08/16/16 06:52 Anion Gap 10 mmol/L 08/16/16 06:52 BUN 10 mg/dL (7-17) 08/16/16 06:52 Creatinine 0.67 mg/dL (0.52-1.04) 08/16/16 06:52 Est GFR (MDRD) Af Amer >60 (>60 ml/min/1.73 sqM) 08/16/16 06:52 Est GFR (MDRD) Non-Af >60 (>60 ml/min/1.73 sqM) 08/16/16 06:52 Glucose 146 mg/dL (74-99) H 08/16/16 06:52 Plasma Lactic Acid Andre 0.9 mmol/L (0.7-2.0) 08/14/16 10:37 Calcium 8.7 mg/dL (8.4-10.2) 08/16/16 06:52 Total Bilirubin 0.4 mg/dL (0.2-1.3) 08/15/16 06:00 AST 24 U/L (14-36) 08/15/16 06:00 ALT 18 U/L (9-52) 08/15/16 06:00 Alkaline Phosphatase 167 U/L (38-126) H 08/15/16 06:00 Total Creatine Kinase 113 U/L (30-135) 08/14/16 22:26 CK-MB (CK-2) 3.6 ng/mL (0.0-2.4) H* 08/14/16 22:26 CK-MB (CK-2) Rel Index 3.2 08/14/16 22:26 Troponin I 0.044 ng/mL (0.000-0.034) H* 08/14/16 22:26 NT-Pro-B Natriuret Pep 848 pg/mL 08/14/16 10:37 Total Protein 5.7 g/dL (6.3-8.2) L 08/15/16 06:00 Albumin 2.7 g/dL (3.5-5.0) L 08/15/16 06:00 Triglycerides 162 mg/dL (<150) H 08/15/16 06:00 Cholesterol 128 mg/dL (<200) 08/15/16 06:00 LDL Cholesterol, Calc 70 mg/dL (0-99) 08/15/16 06:00 HDL Cholesterol 26 mg/dL (40-60) L 08/15/16 06:00 Cortisol 25 ug/dL 08/14/16 10:37 Urine Color Light Yellow 08/14/16 14:00 Urine Appearance Clear (Clear) 08/14/16 14:00 Urine pH 6.0 (5.0-8.0) 08/14/16 14:00 Ur Specific [place] 1.008 (1.001-1.035) 08/14/16 14:00 Urine Protein Negative (Negative) 08/14/16 14:00 Urine Glucose (UA) Negative (Negative) 08/14/16 14:00 Urine Ketones Negative (Negative) 08/14/16 14:00 Urine Blood Small (Negative) H 08/14/16 14:00 Urine Nitrate Negative (Negative) 08/14/16 14:00 Urine Bilirubin Negative (Negative) 08/14/16 14:00 Urine Urobilinogen <2.0 mg/dL (<2.0) 08/14/16 14:00 Ur Leukocyte Esterase Small (Negative) H 08/14/16 14:00 Urine RBC 5 /hpf (0-5) 08/14/16 14:00 Urine WBC 11 /hpf (0-5) H 08/14/16 14:00 Ur Squamous Epith Cells <1 /hpf (0-4) 08/14/16 14:00 Influenza Type A RNA Not Detected (Not Detectd) 08/14/16 10:37 Influenza Type B (PCR) Not Detected (Not Detectd) 08/14/16 10:37 Microbiology 08/14/16 10:37 Blood Blood Culture - Preliminary No Growth after 48 hours 08/14/16 14:00 Urine,Catheterized Urine Culture - Final Assessment and Plan (1) Fever Narrative/Plan: Pleasant 60-year-old woman presented to Hospital significant weakness with subsequent also with fever. Workup has been performed. Appears to have evidence of active infection at this time. Appears she is having tumor fever regarding her renal cell cancer. She hopefully will do well enough so she can have her rib biopsy performed which can then further help direct her course of therapy. She is being seen by cardiology but did not appear to have an acute cardiac event at this time. Will be discharged home soon. No antibiotic therapy needed. Status: Acute (2) Metastatic renal cell carcinoma Status: Acute
[2016-08-16] MEDS: ZOLPIDEM 5 MG TAB PO SCH (21:38)
[2016-08-17] MEDS: DIAZEPAM 5 MG TAB PO PRN ×2 (00:11→07:28)
[2016-08-17] MEDS: LEVOTHYROXINE 50 MCG TAB PO SCH (06:21)
[2016-08-17] MEDS: METHADONE 10 MG TAB PO SCH (07:23)
[2016-08-17] MEDS: ACETAMINOPHEN TAB 325 MG TAB PO PRN (07:24)
[2016-08-17] MEDS: MORPHINE SULFATE ER 60 MG TABLET PO SCH (07:24)
[2016-08-17] MEDS: GABAPENTIN 300 MG CAP PO SCH (07:24)
[2016-08-17 08:09] LABS: CH 27.3; CHCM 31.7; HCT 30.3 % (34.0-46.0); HDW 2.57; HGB 9.4 gm/dL (11.4-16.0); Hypochromasia Slight; MCHC 31.1 g/dL (31.0-37.0); MCV 86.6 fL (80.0-100.0); Mean Platelet Volume 6.5; RDW 15.1 % (11.5-15.5); WBC 20.8 k/uL (3.8-10.6)
[2016-08-17 08:21] VITALS: BP 159/84; PULSE 114; RESP 18; TEMP 101.9
[2016-08-17 08:33] LABS: Anion Gap 10 mmol/L; Blood Urea Nitrogen 13 mg/dL (7-17); Calcium 8.3 mg/dL (8.4-10.2); Carbon Dioxide 22 mmol/L (22-30); Chloride 93 mmol/L (98-107); Glucose 102 mg/dL (74-99); Non-African American GFR(MDRD) >60 (>60 ml/min/1.73 sqM); Potassium 4.6 mmol/L (3.5-5.1); Sodium 125 mmol/L (137-145)
--- NOTE | 2016-08-17 11:02 | XR ---
EXAMINATION TYPE: XR chest 2V DATE OF EXAM: 08/17/2016 9:15 AM COMPARISON: 07/13/[address] chest 08/14/2016. HISTORY: 60-year-old female for pneumonia TECHNIQUE: Frontal and lateral views FINDINGS: Heart is normal size. Aorta within normal limits. Hyperinflation with flattening of the hemidiaphragm s. Increasing patchy left basilar opacity. Suggestion of scattered small nodular densities as seen on CT chest 08/14/2016. Other scattered interstitial densities are present largely unchanged from prior. IMPRESSION: 1. COPD with increasing left basilar consolidation suspicious for pneumonia. 2. Known scattered pulmonary nodules for which metastatic disease is not excluded.
--- NOTE | 2016-08-18 19:40 | DS ---
DATE OF ADMISSION: 08/14/2016 DATE OF DISCHARGE: 08/17/2016 FINAL DIAGNOSES: 1. Renal cell cancer, possibly causing the fever. 2. Systemic inflammatory response syndrome without any obvious source of infection. 3. Cancer cachexia and moderate protein calorie malnutrition secondary to that. 4. Hypothyroidism. 5. Hypovolemic hyponatremia. 6. Tachycardia due to dehydration. HOSPITAL COURSE: This patient has renal cell cancer, awaiting outpatient treatment. Did have rib biopsy done. The rib biopsy has come back showing positive for carcinoma, though pending immunohistochemical stains. Patient did have a fever and white count. Infectious work-up was negative. Seen by Dr. Zamudio. On the day of discharge, I discussed with Dr. Zamudio. There was a rise in patient's white count. Clinically patient looking good so he recommended patient to remain off antibiotics. This was talked to with the patient and daughter at the bedside. CONSULTATION: 1. Dr. Zamudio from Infectious Disease. 2. Dr. Bebe Flynn from Cardiology. On examination: LUNGS: Decreased breath sounds. CARDIOVASCULAR: First and second sounds normal. DISCHARGE MEDICATIONS: 1. ProAir 1 to 2 puffs q.6 p.r.n. 2. Esterase 21 mg p.o. daily. 3. Neurontin 600 mg p.o. t.i.d. 4. Synthroid 50 mcg p.o. daily. 5. Methadone 10 mg p.o. q.12. 6. Remeron 50 mg p.o. q.h.s. 7. MS Contin 60 mg p.o. q.12. 8. Valium 5 mg p.o. t.i.d. p.r.n. Follow with Dr. Castro on 08/20/16. Follow with Dr. Mckinney in one week. Discharge planning more than 35 minutes.
--- NOTE | 2016-08-19 19:23 | P.CONS ---
History of Present Illness - Reason for Consult Consult date: 08/15/16 Metastatic malignancy. Fever - History of Present Illness Ms Álvarez is a pleasant WF, who developed left upper back and shoulder pain, after sustaining trauma while cleaning her shower. As this persisted, and worsened, she went to [facility] ER on 07/13/16. X ray of the shoulder was negative, but incidentally revealed lung opacities. These were confirmed on CXR. She thus had a CT chest showing multiple b/l pulmonary nodules , 1-2 cm , hilar and mediastinal ravinder enlargement, enlarged and infiltrated appearance of the left kidney with enlarged regional nodes, osteolytic lesion in the medial posterior left 2nd rib, and heterogenous liver suspicious for metastatic disease. She was seen by her PCP Dr Ignacio on 07/17/16, and then referred here for further evaluation and recommendations. His OV notes were reviewed. Labs were obtained from the [facility] EHR from 07/13/16 and revealed elevated WBC and platelets. Her CT CAP/Brain, and bone scan revealed extensive metastatic disease in b/l ribs, b/l pelvis, T spine, LE. Liver mets and lung mets were also noted, along with a complex mass in the left kidney, felt to be the primary. She presented to [facility] Radiology for rib biopsy. She was found to have a fever of 102+, and was hypoxic with O2 saturation around 84%. Per my discussion with Radiology, she also appeared to be somewhat SOB, and uncomfortable lying down. She was sent to the ER. Case was d/w the ER physician. There was no clinical evidence of infection. CTA and venous doppler were recommended, which were negative. However, her troponins were elevated. Thus admission was recommended. Consult was placed for further evaluation and recommendations. Review of Systems Constitutional: Reports fatigue, Reports poor appetite, Reports weight loss Eyes: denies blurred vision, denies pain Ears: deny: decreased hearing, ear discharge, earache, tinnitus Ears, nose, mouth and throat: Denies headache, Denies sore throat Cardiovascular: Reports decreased exercise tolerance Respiratory: Denies cough Gastrointestinal: Reports constipation Genitourinary: Denies dysuria, Denies hematuria Menstruation: Reports postmenopausal Musculoskeletal: Reports as per HPI (left chest wall pain) Integumentary: Denies pruritus, Denies rash Neurological: Reports weakness Psychiatric: Reports sleep disturbances, Denies anxiety, Denies depression Endocrine: Reports fatigue, Reports weight change Hematologic/Lymphatic: Reports as per HPI Past Medical History Past Medical History: Cancer, Thyroid Disorder Additional Past Medical History / Comment(s): hypoglycemia, reflex sympathetic dystrophy, renal cancer with metastases to the lungs, liver and ribs, basal cell skin cancer, stress incontinence, lost approx 30# since 2015 History of Any Multi-Drug Resistant Organisms: None Reported Past Surgical History: Appendectomy, Hysterectomy, Tonsillectomy Additional Past Surgical History / Comment(s): hysterectomy, Varicose Vein, colonoscopy at age 56 which was normal per patient Past Anesthesia/Blood Transfusion Reactions: No Reported Reaction Past Psychological History: Anxiety Additional Psychological History / Comment(s): pt lives at [facility], has 3 steps she goes up. has meals on wheels, no other outside services at this time. has medical alert. She lives alone. There are no pets in the home. No recent travel. 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 Smoking Status: Former smoker Past Alcohol Use History: None Reported Additional Past Alcohol Use History / Comment(s): started smoking at age 26(1981 ) and quit may 2016, smoked half a pack per day Past Drug Use History: None Reported - Past Family History Mother Family Medical History: Cancer Additional Family Medical History / Comment(s): lung Father Family Medical History: Cancer Additional Family Medical History / Comment(s): mesothelioma Medications and Allergies Home Medications Medication Instructions Recorded Confirmed Type Albuterol Sulfate [Proair Hfa] 1 - 2 puff INHALATION RT-Q6H PRN 08/10/16 History Estradiol [Estrace] 1 mg PO DAILY 08/10/16 08/14/16 History Gabapentin [Neurontin] 600 mg PO TID 08/10/16 08/14/16 History Levothyroxine Sodium [Synthroid] 50 mcg PO DAILY 08/10/16 08/14/16 History Methadone [Dolophine] 10 mg PO Q12HR 08/10/16 08/14/16 History Mirtazapine [Remeron] 15 mg PO HS 08/10/16 08/14/16 History Morphine Sulfate ER [Ms Contin] 60 mg PO Q12HR 08/10/16 08/14/16 History Diazepam 5 mg PO TID PRN 08/14/16 08/14/16 History Allergies Allergy/AdvReac Type Severity Reaction Status Date / Time adhesive tape Allergy Unknown Verified 08/14/16 10:53 propoxyphene Allergy Unknown Verified 08/14/16 10:53 [From Leonciomaria [email or web address]] Physical Exam Vitals: Vital Signs Temp Pulse Pulse Resp BP Pulse Ox 08/15/16 15:00 97.5 F L 80 18 108/56 92 L 08/15/16 09:00 100.3 F H 101 H 18 134/78 94 L 08/15/16 08:00 16 08/15/16 04:00 99.4 F 98 16 126/77 89 L 08/15/16 00:00 97.2 F L 83 16 116/58 97 08/14/16 20:00 96.6 F L 78 16 105/70 97 Intake and Output 08/15/16 08/15/16 08/15/16 06:59 14:59 22:59 Intake Total 1200 480 Balance 1200 480 Intake: IV 1200 300 Sodium Chloride 0.9% 1, 1200 300 000 ml @ 100 mls/hr IV . Q10H [facility] Rx#:[id number] Oral 180 Other: Voiding Method Toilet Weight 45.5 kg 45.5 kg Patient Weight 08/16/16 06:59 Weight 45.5 kg - Constitutional General appearance: no acute distress - EENT Eyes: EOMI, PERRLA ENT: hearing grossly normal, normal oropharynx - Neck Neck: no lymphadenopathy Thyroid: bilateral: normal size - Respiratory Respiratory: bilateral: CTA - Cardiovascular Rhythm: regular Heart sounds: normal: S1, S2 - Gastrointestinal General gastrointestinal: normal bowel sounds, soft - Integumentary Integumentary: normal - Neurologic Neurologic: CNII-XII intact - Musculoskeletal Musculoskeletal: generalized weakness, strength equal bilaterally Results CBC & Chem 7: 08/17/16 07:41 08/17/16 07:41 Labs: Abnormal Lab Results - Last 24 Hours (Table) 08/14/16 08/14/16 08/15/16 Range/Units 18:14 22:26 06:00 WBC (3.8-10.6) k/uL RBC (3.80-5.40) m/uL Hgb (11.4-16.0) gm/dL Hct (34.0-46.0) % MCHC (31.0-37.0) g/dL Plt Count (150-450) k/uL Neutrophils # (1.3-7.7) k/uL Lymphocytes # (1.0-4.8) k/uL Sodium 135 L (137-145) mmol/L Chloride 96 L (98-107) mmol/L Alkaline Phosphatase 167 H (38-126) U/L CK-MB (CK-2) 2.9 H* 3.6 H* (0.0-2.4) ng/mL Troponin I 0.070 H* 0.044 H* (0.000-0.034) ng/mL Total Protein 5.7 L (6.3-8.2) g/dL Albumin 2.7 L (3.5-5.0) g/dL Triglycerides 162 H (<150) mg/dL HDL Cholesterol 26 L (40-60) mg/dL /01/24 Range/Units 06:00 WBC 12.3 H (3.8-10.6) k/uL RBC 3.78 L (3.80-5.40) m/uL Hgb 10.0 L (11.4-16.0) gm/dL Hct 32.6 L (34.0-46.0) % MCHC 30.7 L (31.0-37.0) g/dL Plt Count 784 H (150-450) k/uL Neutrophils # 10.8 H (1.3-7.7) k/uL Lymphocytes # 0.7 L (1.0-4.8) k/uL Sodium (137-145) mmol/L Chloride (98-107) mmol/L Alkaline Phosphatase (38-126) U/L CK-MB (CK-2) (0.0-2.4) ng/mL Troponin I (0.000-0.034) ng/mL Total Protein (6.3-8.2) g/dL Albumin (3.5-5.0) g/dL Triglycerides (<150) mg/dL HDL Cholesterol (40-60) mg/dL Chest x-ray: report reviewed CT scan - chest: report reviewed Venous US: report reviewed Assessment and Plan (1) Fever Narrative/Plan: At this time there is no evidence of active infection. Cultures are pending and the pt has been started on empiric antibiotics. Her fever is most likely tumor related. Await culture results. If negative, consider stopping antibiotics Status: Acute (2) Elevated troponin Narrative/Plan: Case d/w Cardiology. The troponin elevation was quite small and non specific. No intervention is planned by them.She is felt to be OK to proceed with her biopsy, if her ECHO is negative Status: Acute (3) Metastatic renal cell carcinoma Narrative/Plan: This is a presumptive diagnosis, as we do not have tissue yet. Her biopsy will be rescheduled, once she is felt to be stable re. her current complaints. Status: Acute
== END 2016-08-17 13:48 | disposition home or self-care (01) | DRG 674 ==
LOC: EC 10:15 → 6SEL 15:03 → 5ONC 08-15 11:00
PROVIDERS: ADMIT Hospitalist; ATTEND Hospitalist
PROC: 0PB23ZX Excision of 3 or More Ribs, Percutaneous Approach, Diagnostic (ICD-10-PCS; principal; 2016-08-16)
PROC: 0P9 Upper Bones, Drainage (ICD-10-PCS; principal; 2016-08-16)
DX: C64.9 Malignant neoplasm of unspecified kidney, except renal pelvis (principal); C78.00 Secondary malignant neoplasm of unspecified lung; R64 Cachexia; E87.0 Hyperosmolality and hypernatremia; C78.7 Secondary malignant neoplasm of liver and intrahepatic bile duct; E44.0 Moderate protein-calorie malnutrition; C79.51 Secondary malignant neoplasm of bone; E87.1 Hypo-osmolality and hyponatremia; G90.50 Complex regional pain syndrome I, unspecified; R65.10 Systemic inflammatory response syndrome (SIRS) of non-infectious origin without acute organ dysfunction; E86.0 Dehydration; E03.9 Hypothyroidism, unspecified; E86.1 Hypovolemia; R09.02 Hypoxemia; Z79.890 Hormone replacement therapy; Z79.899 Other long term (current) drug therapy; Z80.1 Family history of malignant neoplasm of trachea, bronchus and lung; Z87.891 Personal history of nicotine dependence
CPT/HCPCS: 20220; 36415; 51701; 71020; 71275; 77012; 80048; 80053; 80061; 81001; 82533; 82550; 82553; 83605; 83880; 84484; 85025; 85027; 85049; 85610; 85730; 87040; 87086; 87502; 88173; 88305; 88341; 88342; 93005; 93306; 93970; 99285

== ENCOUNTER → 2016-08-14 | Day surgery (SDC) | payer MEDICARE, OTHER ==
[~2016-08-14] MED LIST: ALPRAZolam 0.5 MG TAB PO ONE
[2016-08-14 09:36] LABS: INR 1.3 (<1.1); Prothrombin Time 12.7 sec (9.0-12.0)
[2016-08-14 09:57] VITALS: RESP 20; TEMP 102
[2016-08-14 10:45] VITALS: BP 116/60; PULSE 98
== END ==
LOC: RADPROMAIN 09:01
PROVIDERS: ATTEND Internal Medicine Hematology & Oncology
DX: R50.9 Fever, unspecified (principal); M84.88 Other disorders of continuity of bone, other site
CPT/HCPCS: 36415; 85049; 85610